=== PATIENT | female | born 1980 | race Caucasian/White ===

== ENCOUNTER 2020-12-27 13:51 | Emergency (ER) | payer OTHER, SELFPAY ==
[2020-12-27] VITALS (7 sets, daily range): BP systolic 161–204; BP diastolic 90–110; PULSE 76–87; RESP 17; TEMP 36.8; O2SAT 99; BMI 38.0
--- NOTE | ~2020-12-27 | CT_ITS ---
EXAMINATION: CT HEAD WITHOUT CONTRAST CLINICAL INFORMATION: Headache. Hypertension. COMPARISON: None TECHNIQUE: Contiguous axial imaging was performed from the skull base to vertex without intravenous administration of contrast. This CT examination was performed using dose optimization techniques as appropriate, variously including the following: *Automated exposure control *Adjustment of mA and/or kV according to patient size (this includes techniques or standardized protocols for targeted exams where dose is matched to indication/reason for exam; i.e. extremities or head) *Use of iterative reconstruction technique DLP: 698.65 mGy-cm FINDINGS: There is no evidence of acute intracranial hemorrhage or territorial infarction. No abnormal mass effect or midline shift is seen. Muse to white matter differentiation is well preserved. No extra-axial fluid collections are identified. The ventricles are normal in size. There is no abnormal attenuation within the brain parenchyma. The osseous structures and soft tissues are normal. The mastoid air cells and visualized portions of the paranasal sinuses are well aerated. CT/CT head/brain wo con IMPRESSION: No acute intracranial pathology.
--- NOTE | 2020-12-27 15:00 | ED_ITS ---
HPI - General Adult General Chief complaint: General Medical Stated complaint: hbp Time Seen by Provider: 12/27/20 15:00 Source: patient Mode of arrival: ambulatory Limitations: no limitations History of Present Illness HPI narrative: This is a 40-year-old female reports history of asthma, hypothyroidism, obesity and prediabetes with surgical history of cholecystectomy presents today with complaint of high blood pressure with associated headache. States she went to her primary care doctor December 17 (4 days ago) there she was found to have significantly elevated blood pressure without a history she did have any symptoms thus she was subsequently started on 2.5 mg of amlodipine and states since she has been checking her blood pressure she checked last night was elevated this morning she woke up with elevated blood pressure and had a headache since. She otherwise denies any recent illness, chest pain or shortness of breath. Headache is described as diffuse, gradual onset. There is no associated vision changes. No dizziness. Onset (ago): day(s) Location: head Radiation: non-radiation Severity: moderate Quality: aching Pain Consistency: intermittent Relieving factors: none Exacerbating factors: none Associated symptoms: denies other symptoms Treatments prior to arrival: none Related Data Previous Rx's Medication Instructions Recorded amlodipine 10 mg tablet 10 mg PO DAILY 14 Days #14 tab 12/27/20 Allergies Allergy/AdvReac Type Severity Reaction Status Date / Time Penicillins [PENICILLINS] Allergy Severe Anaphylaxis Verified 12/27/20 14:09 Sulfa (Sulfonamide Allergy Intermediate Rash Verified 12/27/20 14:09 Antibiotics) Review of Systems Review of Systems: Constitutional: No Weight loss, No Fever, No Chills, No Night Sweats, No Fatigue, No Malaise ENT/Mouth: No Hearing loss, No Ear Pain, No Nasal Congestion, No Sinus Pain, No Hoarseness, No sore throat, No Rhinorrhea, No Swallowing Difficulty Eyes: No Eye Pain, No Swelling, No Redness, No Foreign Body, No Discharge, No Vision Changes Cardiovascular: No Chest Pain, No SOB, No Dyspnea on Exertion, No Orthopnea, No Edema, No Palpitations Respiratory: No Cough, No Sputum, No Wheezing, No Smoke Exposure, No Dyspnea Gastrointestinal: No Nausea, No Vomiting, No Diarrhea, No Constipation, No abdominal Pain, No Hematochezia, No Melena Genitourinary: no irregular bleeding, No Dysuria, No Urinary Frequency, No Hematuria, No Urinary Incontinence, No Urgency, No Flank Pain, No Urinary Flow Changes, No Hesitancy Musculoskeletal: No joint pain, No Myalgias, No Joint Swelling Skin: No Skin Lesions, No rash Neuro: No Weakness, No Numbness, No Paresthesias, No Loss of Consciousness, No Dizziness Psych: No Social Issues Heme/Lymph: No Bruising, No Bleeding,No Lymphadenopathy Endocrine: No Polyuria, No Polydipsia, No Temperature Intolerance Yes all other systems are reviewed and are negative [facility] Past Medical History Medical History (Updated 12/27/20 @ 18:08 by Cliff Ford NP) Asthma Hypothyroid Obesity Pre-hypertension Surgical History S/P cholecystectomy Social History Social History Patient Tobacco Use Status: Former Tobacco user Substance Use Type: Marijuana Substance Use Frequency: Occasionally Advance Directives: No Advance Directives Information Provided: Yes Patient : No Physical Exam Vital Signs: Vital Signs: Last Vital Signs Temp 98.3 F 12/27/20 14:10 Pulse 78 12/27/20 17:30 Resp 17 12/27/20 14:10 BP 165/90 H 12/27/20 17:30 Pulse Ox 99 12/27/20 14:10 Body Mass Index 38.0 Course Reevaluation(s) Reevaluation #1: 1500 Blood pressure significantly elevated upon arrival 204/110 currently on 2.5 mg amlodipine this is likely insufficient therapy for her recommend her to be on at least 10 mg in addition to this gradually be added on to diuretic as well. She currently has a mild headache I will check labs, treat the blood pressure given that she is symptomatic and obtain head CT of the head rule out acute intracranial pathology though suspicions are low. Reevaluation #2: Labs overall reassuring, resting comfortably. Marginal improvement in blood pressure after given p.o. 0.1 clonidine and 10 of amlodipine. She reports she feels better no headache now. CT of the head is unremarkable. I will give her 10 mg of IV labetalol and re-evaluate. Reevaluation #3: Has been sleeping easy to arouse blood pressure sustaining at 160/90 concur to arrival 210/ 100 which I believe is her baseline for some time now as this was her blood pressure in the primary care's office. She was given 2.5 mg of amlodipine I will change this to 10 mg once daily and I will advise her to call tomorrow primary care office for recheck and medication adjustment as needed. She feels comfortable plan. Stable for discharge. Medical Decision Making Lab Data Result diagrams: 12/27/20 15:30 12/27/20 15:30 Labs: Lab Results 12/27/20 12/27/20 12/27/20 Range/Units 15:30 15:30 15:47 WBC 9.2 (4.8-10.8) X10*3/uL RBC 5.26 (4.20-5.50) X10*6/uL Hgb 13.7 (12.0-16.0) g/dl Hct 40.9 (37-47) % MCV 77.8 L (80-98) fL MCH 26.0 L (27.0-33.0) pg MCHC 33.5 (31.0-35.0) g/dl RDW 13.9 (11.0-16.0) % Plt Count 265 (160-400) X10*3/uL MPV 9.1 L (9.4-12.3) fL Immature Gran % (Auto) 0.4 (0.0-0.4) % Neut % (Auto) 62.5 (45-73) % Lymph % (Auto) 26.5 (20-40) % Oliver % (Auto) 7.0 (2-11) % Eos % (Auto) 2.8 (0-4) % Baso % (Auto) 0.8 (0-2) % Lymph # (Auto) 2.4 (1.2-4.9) X10*3/uL [place] # (Auto) 0.7 (0.1-1.2) X10*3/uL Eos # (Auto) 0.3 (0.0-0.4) X10*3/uL Baso # (Auto) 0.1 (0.0-0.2) X10*3/uL Abs Immat Gran (auto) 0.04 H (0.00-0.03) X10*3/uL Absolute Neuts (auto) 5.8 (2.0-8.3) X10*3/uL Absolute Nucleated RBC 0.000 (0.0-0.012) X10*3/uL Nucleated RBC % (auto) 0.0 (0.0-0.2) /100WBC Sodium 141 (135-145) mmol/L Potassium 3.8 (3.3-5.1) mmol/L Chloride 106 (96-108) mmol/L Carbon Dioxide 26 (22-29) mmol/L Anion Gap 13 (12-20) BUN 8 L (9-16) mg/dL Creatinine 0.87 (0.5-1.4) mg/dL Estim Creat Clear Calc 99.1 Estimated GFR > 60 Random Glucose 102 (60-115) mg/dL Calcium 9.6 (8.4-10.2) mg/dL Total Bilirubin 0.6 (0.0-1.0) mg/dL AST 26 (5-31) U/L ALT 28 (0-31) U/L Alkaline Phosphatase 116 (39-117) U/L Total Protein 7.1 (6.5-8.0) g/dL Albumin 4.2 (3.5-5.0) g/dL Urine Color Urine Appearance Urine pH (5.0-8.0) Ur Specific Norman (1.005-1.025) Urine Protein (NEG-TRACE) MG/DL Urine Glucose (UA) (NEG) MG/DL Urine Ketones (NEG) MG/DL Urine Blood (NEG) Urine Nitrite (NEG) Ur Leukocyte Esterase (NEG) Urine RBC (0) /HPF Urine WBC (0-4) /HPF Ur Squamous Epith Cells /LPF Urine Bacteria /LPF Urine Test NEGATIVE (NEGATIVE) 12/27/20 Range/Units 15:47 WBC (4.8-10.8) X10*3/uL RBC (4.20-5.50) X10*6/uL Hgb (12.0-16.0) g/dl Hct (37-47) % MCV (80-98) fL MCH (27.0-33.0) pg MCHC (31.0-35.0) g/dl RDW (11.0-16.0) % Plt Count (160-400) X10*3/uL MPV (9.4-12.3) fL Immature Gran % (Auto) (0.0-0.4) % Neut % (Auto) (45-73) % Lymph % (Auto) (20-40) % Oliver % (Auto) (2-11) % Eos % (Auto) (0-4) % Baso % (Auto) (0-2) % Lymph # (Auto) (1.2-4.9) X10*3/uL Oliver # (Auto) (0.1-1.2) X10*3/uL Eos # (Auto) (0.0-0.4) X10*3/uL Baso # (Auto) (0.0-0.2) X10*3/uL Abs Immat Gran (auto) (0.00-0.03) X10*3/uL Absolute Neuts (auto) (2.0-8.3) X10*3/uL Absolute Nucleated RBC (0.0-0.012) X10*3/uL Nucleated RBC % (auto) (0.0-0.2) /100WBC Sodium (135-145) mmol/L Potassium (3.3-5.1) mmol/L Chloride (96-108) mmol/L Carbon Dioxide (22-29) mmol/L Anion Gap (12-20) BUN (9-16) mg/dL Creatinine (0.5-1.4) mg/dL Estim Creat Clear Calc Estimated GFR Random Glucose (60-115) mg/dL Calcium (8.4-10.2) mg/dL Total Bilirubin (0.0-1.0) mg/dL AST (5-31) U/L ALT (0-31) U/L Alkaline Phosphatase (39-117) U/L Total Protein (6.5-8.0) g/dL Albumin (3.5-5.0) g/dL Urine Color YELLOW Urine Appearance CLEAR Urine pH 7.0 (5.0-8.0) Ur Specific Norman 1.015 (1.005-1.025) Urine Protein TRACE (NEG-TRACE) MG/DL Urine Glucose (UA) NEG (NEG) MG/DL Urine Ketones NEG (NEG) MG/DL Urine Blood NEG (NEG) Urine Nitrite NEG (NEG) Ur Leukocyte Esterase NEG (NEG) Urine RBC 0-2 (0) /HPF Urine WBC 0-2 (0-4) /HPF Ur Squamous Epith Cells 1+ /LPF Urine Bacteria TRACE /LPF Urine Test (NEGATIVE) Imaging Data CT scan - head: Radiologist's impression: [address] [address] [address] Scan Report Signed Patient: Cornelia Palencia MR#: [id number] : 1980 Acct:[id number] Age/Sex: 40 / F ADM Date: 12/27/20 Loc: HO.ED Attending Dr: Ordering Physician: Cliff Ford NP Date of Service: 12/27/20 Procedure(s): CT head/brain wo con Accession Number(s): [id number] cc: Cliff Ford ETHICS OFFICER~ EXAMINATION: CT HEAD WITHOUT CONTRAST CLINICAL INFORMATION: Headache. Hypertension.? COMPARISON: None TECHNIQUE: Contiguous axial imaging was performed from the skull base to vertex without intravenous administration of contrast. This CT examination was performed using dose optimization techniques as appropriate, variously including the following: *Automated exposure control *Adjustment of mA and/or kV according to patient size (this includes techniques or standardized protocols for targeted exams where dose is matched to indication/reason for exam; i.e. extremities or head) *Use of iterative reconstruction technique DLP: 698.65 mGy-cm FINDINGS: There is no evidence of acute intracranial hemorrhage or territorial infarction. No abnormal mass effect or midline shift is seen. Muse to white matter differentiation is well preserved. No extra-axial fluid collections are identified. The ventricles are normal in size. There is no abnormal attenuation within the brain parenchyma. The osseous structures and soft tissues are normal. The mastoid air cells and visualized portions of the paranasal sinuses are well aerated. ? CT/CT head/brain wo con IMPRESSION: No acute intracranial pathology. Dictated By: SIMIN WEN MD Signed By: <Electronically signed by SIMIN WEN MD in OV> 12/27/20 1545 DD/ 1504 TD/TT:? Calender Runner: PK ECG Data Interpretation: Test Reason : HTN Blood Pressure : / mmHG Vent. Rate : 083 BPM ? ? Atrial Rate : 083 BPM ?? P-R Int : 138 ms? QRS Dur : 084 ms ? ? QT Int : 406 ms ? ? ? P-R-T Axes : 044 040 -09 degrees ?? QTc Int : 477 ms ? Normal sinus rhythm Possible Left atrial enlargement Left ventricular hypertrophy Nonspecific T wave abnormality Prolonged QT Abnormal ECG No previous ECGs available ? Critical Care Time Critical Care Time Critical Care Time: Yes Total Critical Care Time: 65 Attestation: Management of hypertensive urgency requiring multiple agents, multiple re-evaluations at bedside for the duration of her ED stay. Discharge Plan Discharge Clinical Impression: Hypertensive urgency, Headache Patient Disposition: Home, Self-Care Instructions: Acute Headache (ED), Hypertensive Crisis (ED) Additional Instructions: Please take your medication as prescribed Follow-up with primary care doctor tomorrow for blood pressure recheck and have your medication adjusted as needed Return if any concerns or worsening symptoms Thank you Prescriptions: New amlodipine 10 mg tablet 10 mg PO DAILY 14 Days Qty: 14 RF: 0 Referrals: Physician,Unknown [Primary Care Provider] - 1 day (Primary care)
--- NOTE | 2020-12-27 15:04 | ECG_ITS ---
Test Reason : HTN Blood Pressure : / mmHG Vent. Rate : 083 BPM Atrial Rate : 083 BPM P-R Int : 138 ms QRS Dur : 084 ms QT Int : 406 ms P-R-T Axes : 044 040 -09 degrees QTc Int : 477 ms Normal sinus rhythm Possible Left atrial enlargement Left ventricular hypertrophy Nonspecific T wave abnormality Prolonged QT Abnormal ECG No previous ECGs available Referred By: Cliff Ford Electronically Signed By:KAILEY RUIZ
[2020-12-27] MEDS: cloNIDine HCL 0.1 MG TABLET PO (15:28)
[2020-12-27] MEDS: amLODIPine Besylate 10 MG TABLET PO (15:28)
[2020-12-27 15:41] LABS: MANUAL DIFF FLAG NO
[2020-12-27 15:42] LABS: Basophils Absolute Auto 0.1 X10*3/uL (0.0-0.2); Basophils Percent Auto 0.8 % (0-2); Eosinophils Absolute Auto 0.3 X10*3/uL (0.0-0.4); Eosinophils Percent Auto 2.8 % (0-4); Hematocrit 40.9 % (37-47); Hemoglobin 13.7 g/dl (12.0-16.0); Imm Gran Abs Auto 0.04 X10*3/uL (0.00-0.03); Imm Gran Pct Auto 0.4 % (0.0-0.4); Lymphocytes Absolute Auto 2.4 X10*3/uL (1.2-4.9); Lymphocytes Percent Auto 26.5 % (20-40); Mean Corpuscular HGB Conc 33.5 g/dl (31.0-35.0); Mean Corpuscular Volume 77.8 fL (80-98); Mean Platelet Volume 9.1 fL (9.4-12.3); Monocytes Absolute Auto 0.7 X10*3/uL (0.1-1.2); Neutrophils Absolute Auto 5.8 X10*3/uL (2.0-8.3); Neutrophils Percent Auto 62.5 % (45-73); Platelet Count 265 X10*3/uL (160-400); Red Blood Count 5.26 X10*6/uL (4.20-5.50); Red Cell Distribution Width 13.9 % (11.0-16.0); White Blood Count 9.2 X10*3/uL (4.8-10.8)
[2020-12-27 16:03] LABS: Alanine Aminotransferase 28 U/L (0-31); Albumin Level 4.2 g/dL (3.5-5.0); Alkaline Phosphatase 116 U/L (39-117); Anion Gap 13 (12-20); Aspartate Amino Transferase 26 U/L (5-31); Bilirubin Total 0.6 mg/dL (0.0-1.0); Blood Urea Nitrogen 8 mg/dL (9-16); Calcium 9.6 mg/dL (8.4-10.2); Carbon Dioxide 26 mmol/L (22-29); Chloride 106 mmol/L (96-108); Creatinine Clr Calc Pharmacy 99.1; Estimated Glomerular Filt Rate > 60; Glucose Random 102 mg/dL (60-115); Potassium 3.8 mmol/L (3.3-5.1); Sodium 141 mmol/L (135-145); Total Protein 7.1 g/dL (6.5-8.0)
[2020-12-27 16:04] LABS: Appearance Urine CLEAR; Color Urine YELLOW; Glucose Urine UA NEG (NEG); Leukocyte Esterase Urine NEG (NEG); Nitrite Urine NEG (NEG); Specific Gravity - Urine 1.015 (1.005-1.025); Urine Blood NEG (NEG); Urine Ketones NEG (NEG); Urine Pregnancy NEGATIVE (NEGATIVE); Urine Protein TRACE MG/DL (NEG-TRACE)
[2020-12-27 16:05] LABS: UPreg QC Valid YES
[2020-12-27 16:14] LABS: Bacteria Urine TRACE /LPF; RBC Urine 0-2 /HPF (0); Squamous Epithelial Cell Urine 1+ /LPF; WBC Urine 0-2 /HPF (0-4)
[2020-12-27] MEDS: Labetalol HCL 100 MG/20 ML VIAL 10 MG IVPUSH (16:23)
--- NOTE | 2020-12-27 16:24 | PC.NURSE ---
Addendum entered by Hedy Poole RN 12/27/20 16:45: 1645: BP trending down slightly. Pt reports an improvement in her headache. Original Note: 10mg labatalol given IV. BP auto set to re-assess.
--- NOTE | 2020-12-27 17:46 | PC.NURSE ---
Pt resting in bed with eyes closed. BP has improved.
== END 2020-12-27 18:43 | disposition home or self-care (01) ==
PROVIDERS: Nurse Practitioner Primary Care; Emergency Provider Emergency Medicine
DX: I16.0 Hypertensive urgency (principal); R51.9 Headache, unspecified; Z79.899 Other long term (current) drug therapy; F12.90 Cannabis use, unspecified, uncomplicated
CPT/HCPCS: 36415; 70450; 80053; 81001; 81025; 85025; 93005; 96374; 99285; 99291

== ENCOUNTER 2021-06-18 14:40 | Observation (INO) | payer OTHER, SELFPAY ==
[2021-06-18] VITALS (11 sets, daily range): BP systolic 156–196; BP diastolic 90–105; PULSE 66–80; RESP 16–18; TEMP 36.8; O2SAT 99–100; BMI 37.8
--- NOTE | ~2021-06-18 | CT_ITS ---
EXAMINATION: CT HEAD WITHOUT CONTRAST CLINICAL INFORMATION: Hypertension, headache. COMPARISON: 12/27/2020. TECHNIQUE: Contiguous axial imaging was performed from the skull base to vertex without intravenous administration of contrast. This CT examination was performed using dose optimization techniques as appropriate, variously including the following: *Automated exposure control *Adjustment of mA and/or kV according to patient size (this includes techniques or standardized protocols for targeted exams where dose is matched to indication/reason for exam; i.e. extremities or head) *Use of iterative reconstruction technique DLP: 679 mGy-cm FINDINGS: There is no evidence of acute intracranial hemorrhage or territorial infarction. No abnormal mass effect or midline shift is seen. Muse to white matter differentiation is well preserved. No extra-axial fluid collections are identified. The ventricles are normal in size. There is no abnormal attenuation within the brain parenchyma. The osseous structures and soft tissues are normal. The mastoid air cells and visualized portions of the paranasal sinuses are well aerated. CT/CT head/brain wo con IMPRESSION: No acute intracranial pathology.
--- NOTE | 2021-06-18 15:31 | ECG_ITS ---
Test Reason : HYPERTENSION Blood Pressure : / mmHG Vent. Rate : 068 BPM Atrial Rate : 068 BPM P-R Int : 152 ms QRS Dur : 078 ms QT Int : 412 ms P-R-T Axes : 026 033 039 degrees QTc Int : 438 ms Normal sinus rhythm with sinus arrhythmia Normal ECG When compared with ECG of 27-DEC-2020 15:20, T wave inversion no longer evident in Inferior leads Referred By: Generic ED Physician Electronically Signed By:CHIP BARNES
[2021-06-18 17:32] LABS: MANUAL DIFF FLAG NO
[2021-06-18 17:44] LABS: Basophils Absolute Auto 0.1 X10*3/uL (0.0-0.2); Basophils Percent Auto 0.7 % (0-2); Eosinophils Absolute Auto 0.2 X10*3/uL (0.0-0.4); Eosinophils Percent Auto 2.1 % (0-4); Hematocrit 41.1 % (37.0-47.0); Hemoglobin 13.1 g/dl (12.0-16.0); Imm Gran Abs Auto 0.01 X10*3/uL (0.00-0.03); Imm Gran Pct Auto 0.1 % (0.0-0.4); Lymphocytes Absolute Auto 2.8 X10*3/uL (1.2-4.9); Lymphocytes Percent Auto 36.7 % (20-40); Mean Corpuscular HGB Conc 31.9 g/dl (31.0-35.0); Mean Corpuscular Hemoglobin 25.9 pg (27.0-33.0); Mean Corpuscular Volume 81.2 fL (80.0-98.0); Mean Platelet Volume 9.3 fL (9.4-12.3); Monocytes Absolute Auto 0.6 X10*3/uL (0.1-1.2); Monocytes Percent Auto 7.4 % (2-11); Neutrophils Absolute Auto 4.1 x10*3/uL (2.0-8.3); Platelet Count 300 X10*3/uL (160-400); Red Blood Count 5.06 X10*6/uL (4.20-5.50); Red Cell Distribution Width 13.7 % (11.0-16.0); White Blood Count 7.7 X10*3/uL (4.8-10.8)
[2021-06-18 17:52] LABS: Anion Gap 12 (12-20); Blood Urea Nitrogen 12 mg/dL (9-16); Calcium 9.7 mg/dL (8.4-10.2); Carbon Dioxide 26 mmol/L (22-29); Chloride 107 mmol/L (96-108); Creatinine Clr Calc Pharmacy 114.4; Estimated Glomerular Filt Rate > 60; Glucose Random 80 mg/dL (60-115); Potassium 4.7 mmol/L (3.3-5.1); Sodium 140 mmol/L (135-145)
[2021-06-18 17:57] LABS: Troponin-I High Sensitivity 4.2 ng/L (<3.5-17.0)
--- NOTE | 2021-06-18 19:28 | ED.GENADULT ---
HPI - General Adult General Chief complaint: General Medical Stated complaint: HBP Time Seen by Provider: 06/18/21 19:25 Source: patient Mode of arrival: ambulatory Limitations: no limitations History of Present Illness MD complaint: elevated BP to 200s Onset (ago): day(s) (7) Location: head Severity: mild and moderate Quality: aching Pain Consistency: intermittent Relieving factors: none Exacerbating factors: other (significant life stress this week) Associated symptoms: headaches (mild parietal headache) Treatments prior to arrival: other (compliant with her losartan 100mg daily) Related Data Previous Rx's Medication Instructions Recorded amlodipine 10 mg tablet 10 mg PO DAILY 14 Days #14 tab 12/27/20 metoprolol succinate 25 mg 25 mg PO DAILY #30 tab 06/18/21 tablet,extended release 24 hr Allergies Allergy/AdvReac Type Severity Reaction Status Date / Time Penicillins [PENICILLINS] Allergy Severe Anaphylaxis Verified 12/27/20 14:09 Sulfa (Sulfonamide Allergy Intermediate Rash Verified 12/27/20 14:09 Antibiotics) Review of Systems Review of Systems: Constitutional : No Fever, No Chills, No Fatigue ENT/Mouth : No sore throat, No Rhinorrhea Eyes: No Eye Pain, No Swelling, No Redness Cardiovascular : No Chest Pain, No SOB, No Dyspnea on Exertion Respiratory : No Cough, No Sputum Gastrointestinal : No Nausea, No Vomiting, No Diarrhea, No abdominal Pain Genitourinary : No Dysuria, No Urinary Frequency, No Hematuria, Musculoskeletal : No joint pain, No Myalgias, No Joint Swelling Skin : No Skin Lesions, No rash Neuro : No Weakness, No Numbness, No Dizziness, positive Headache Psych : No Anxiety/Panic, No Depression Heme/Lymph: No Bruising, No Bleeding,No Lymphadenopathy Endocrine : No Polyuria, No Polydipsia All other systems reviewed and are negative PMFSH Past Medical History Attestation statement: The following information was validated with the patient. Medical History (Updated 06/18/21 @ 22:47 by Adalgisa Dhaliwal DO) Asthma HTN (hypertension) Hypothyroid Obesity Surgical History S/P cholecystectomy Social History Social History Patient Tobacco Use Status: Former Tobacco user Substance Use Type: Marijuana Advance Directives: No Physical Exam ED Vital Signs: Vital Signs - 24 hr 06/18/21 15:02 06/18/21 20:29 06/18/21 20:34 Temperature 98.2 F Pulse Rate 75 67 71 Respiratory Rate 18 18 16 Blood Pressure 193/96 H 160/93 H 156/90 H Pulse Oximetry 100 99 99 06/18/21 20:39 06/18/21 20:44 06/18/21 20:53 Temperature Pulse Rate 72 80 71 Respiratory Rate 18 18 18 Blood Pressure 166/91 H 162/96 H 161/98 H Pulse Oximetry 100 100 100 06/18/21 21:05 06/18/21 21:14 Temperature Pulse Rate 71 71 Respiratory Rate 18 18 Blood Pressure 156/105 H 196/90 H Pulse Oximetry 100 99 BMI result Body Mass Index 37.8 Appearance: Alert. Oriented X3. No acute distress. Eyes: Pupils equal, round and reactive to light. ENT: Pharynx normal. Neck: Normal inspection. Neck supple. CVS: Normal heart rate and rhythm. Pulses normal. Respiratory: No respiratory distress. Breath sounds normal. Abdomen: Soft and non-tender. Skin: Skin warm and dry. Normal skin color. Normal skin turgor. Extremities: No lower extremity edema. No calf ttp Neuro: Oriented X 3. No motor deficit. No sensory deficit. Course Course Course Narrative: good response to labetalol BP down feels much better and wants to go home will start on metoprolol has apple watch states her HR is usually above 80s IV hydralazine 190/[address] prior to admission signed out to Dr. Matthew Medical Decision Making [facility] Narrative Medical decision making narrative: 40 yo female hx of HTN on losartan 100mg daily she is compliant had a bad week with family including the of a family member she has no neuro deficits and the headache is mild at this time will obtain basic labs, EKG, IV labetalol to lower BP and likely start on low dose metoprolol. No neurologic deficits. Dispo per results and findings. Lab Data Result diagrams: 06/18/21 17:16 06/18/21 17:16 Labs: Lab Results 06/18/21 06/18/21 06/18/21 Range/Units 17:16 17:16 17:16 WBC 7.7 (4.8-10.8) X10*3/uL RBC 5.06 (4.20-5.50) X10*6/uL Hgb 13.1 (12.0-16.0) g/dl Hct 41.1 (37.0-47.0) % MCV 81.2 (80.0-98.0) fL MCH 25.9 L (27.0-33.0) pg MCHC 31.9 (31.0-35.0) g/dl RDW 13.7 (11.0-16.0) % Plt Count 300 (160-400) X10*3/uL MPV 9.3 L (9.4-12.3) fL Immature Gran % (Auto) 0.1 (0.0-0.4) % Neut % (Auto) 53.0 (45-73) % Lymph % (Auto) 36.7 (20-40) % [place] % (Auto) 7.4 (2-11) % Eos % (Auto) 2.1 (0-4) % Baso % (Auto) 0.7 (0-2) % Lymph # (Auto) 2.8 (1.2-4.9) X10*3/uL [place] # (Auto) 0.6 (0.1-1.2) X10*3/uL Eos # (Auto) 0.2 (0.0-0.4) X10*3/uL Baso # (Auto) 0.1 (0.0-0.2) X10*3/uL Abs Immat Gran (auto) 0.01 (0.00-0.03) X10*3/uL Absolute Neuts (auto) 4.1 (2.0-8.3) x10*3/uL Absolute Nucleated RBC 0.000 (0.0-0.012) X10*3/uL Nucleated RBC % (auto) 0.0 (0.0-0.2) /100WBC Sodium 140 (135-145) mmol/L Potassium 4.7 D (3.3-5.1) mmol/L Chloride 107 (96-108) mmol/L Carbon Dioxide 26 (22-29) mmol/L Anion Gap 12 (12-20) BUN 12 (9-16) mg/dL Creatinine 0.75 (0.5-1.4) mg/dL Estim Creat Clear Calc 114.4 Estimated GFR > 60 Random Glucose 80 (60-115) mg/dL Calcium 9.7 (8.4-10.2) mg/dL Troponin I High Sens 4.2 (<3.5-17.0) ng/L ECG Data Attestation: I personally reviewed and interpreted this ECG as follows: Interpretation: Rate: 68 Rhythm: NSR [place]: normal Normal P waves. Normal JOSE. Normal QRS complex. ST T wave : no ALVARO, nonspecific qTC: normal prior studies: no acute ischemia The study has been interpreted contemporaneously by me. . Discharge Plan Discharge Clinical Impression: Hypertension, uncontrolled Patient Disposition: Admitted As Inpatient Additional Instructions: return to ED for any worsening symptoms or concerns
[2021-06-18] MEDS: Labetalol HCL 100 MG/20 ML VIAL 10 MG IVPUSH (20:23)
[2021-06-18] MEDS: Metoprolol Tartrate 25 MG TABLET PO (21:28)
[2021-06-18] MEDS: hydrALAZINE HCl 20 MG/ML VIAL 10 MG IVPUSH (22:48)
[2021-06-18 23:03] LABS: COVID-19 Test Negative (Negative)
--- NOTE | 2021-06-18 23:57 | PM.IMHP ---
History of Present Illness Date of Service: 06/18/21 Chief Complaint: elevated blood pressure 40-year-old female with a past medical history of hypertension, obesity presented to the hospital with a chief complaint of elevated blood pressure. Patient reported that she noted to have high blood pressure elevated to 190 systolic; call the PCP to see the PCP early but she could not get appointment; but patient was instructed to go to the ER if she develops any headaches blurry visions; today she had headache; when checked her blood pressure systolic was in 200s; subsequently came to the ER for further evaluation. Denies any headaches blurry visions, numbness tingling or focal weakness at the time of my interview. Denies any chest pain palpitations lightheadedness or dizziness. Patient reports that she has been complaint with her home medications. Mention she was on amlodipine in the past which was giving her cough hands of the was discontinued and started on losartan 50 mg and followed weight was changed to 100 mg. Mentions she has been complaint with her low-salt diet. Denies any GI symptoms. Review of all other systems is negative except mentioned above ER course: Per ER team patient blood pressure was noted to be in 190s systolic; patient was given IV labetalol initially blood pressure improved to 1 60s but again blood pressure wrist up to 190 systolic; given IV hydralazine. Patient was also given p.o. metoprolol. Admitted to the hospital for further management. [facility] Medical History (Updated 06/18/21 @ 22:47 by Adalgisa Dhaliwal DO) Asthma HTN (hypertension) Hypothyroid Obesity Pertinent family history: reviewed Surgical History S/P cholecystectomy Social History Patient Tobacco Use Status: Former Tobacco user Substance Use Type: Marijuana Advance Directives: No Meds Allergies Allergy/AdvReac Type Severity Reaction Status Date / Time Penicillins [PENICILLINS] Allergy Severe Anaphylaxis Verified 12/27/20 14:09 Sulfa (Sulfonamide Allergy Intermediate Rash Verified 12/27/20 14:09 Antibiotics) Active Medications: Current Medications Pharmacy Consult (Consult Rx Perform Med Rec) 1 each MISCELLANE ONCE PRN PRN Reason: Consult order Physical Exam Vital Signs and Narrative: Vital Signs: Last Vital Signs Temp 98.2 F 06/18/21 15:02 Pulse 75 06/18/21 23:47 Resp 17 06/18/21 23:47 BP 168/98 H 06/18/21 23:55 Pulse Ox 99 06/18/21 23:47 BMI result Body Mass Index 37.8 Gen: Appears be in no acute distress HEENT: NCAT, Moist mucosa. Pulmonary: Vesicular breath sounds, fair air entry CVS: Normal S1-S2 Abdomen: BS+, Soft, Nontender Extremities: Warm well perfused Neuro: Alert and awake. grossly nonfocal Results Labs CBC and Chem 7: 06/18/21 17:16 06/18/21 17:16 Labs: Laboratory Results - last 24 hr 06/18/21 06/18/21 06/18/21 17:16 17:16 22:45 MCV 81.2 MCH 25.9 L MCHC 31.9 RDW 13.7 Plt Count 300 MPV 9.3 L Immature Gran % (Auto) 0.1 Neut % (Auto) 53.0 Lymph % (Auto) 36.7 [place] % (Auto) 7.4 Eos % (Auto) 2.1 Baso % (Auto) 0.7 Lymph # (Auto) 2.8 [place] # (Auto) 0.6 Eos # (Auto) 0.2 Baso # (Auto) 0.1 Abs Immat Gran (auto) 0.01 Absolute Neuts (auto) 4.1 Absolute Nucleated RBC 0.000 Nucleated RBC % (auto) 0.0 Anion Gap 12 Estim Creat Clear Calc 114.4 Estimated GFR > 60 Random Glucose 80 Calcium 9.7 COVID-19 (NIA) Negative COVID-19 Clin Com See Note Imaging Radiologist's Impressions: Impressions Head CT 06/18/21 23:17 IMPRESSION: No acute intracranial pathology. Assessment and Plan (1) Hypertension, uncontrolled: Status: Acute Plan 40-year-old female with a past medical history of hypertension, obesity presented to the hospital with a chief complaint of elevated blood pressure. Noted to be in hypertensive urgency. Admitted for further management. Hypertensive urgency: Patient initially had a headache /blurry vision. CT head showed no acute findings. Symptoms resolved. Currently systolic blood pressure in 160s. Will keep the patient on losartan 100 mg. Start with metoprolol 25 mg b.i.d.. Labetalol p.r.n. Obesity: Patient educated on lifestyle modifications. recommended to follow-up with PCP /weight management clinic. DVT prophylaxis: Subcu heparin Code status: Full code Quality Stroke Does the patient have a stroke diagnosis?: No VTE Prior VTE?: No VTE Risk Level:: Medical - moderate - high VTE Device Contraindication: Treatment Not Indicated VTE Drug Contraindication: N/A - Med Ordered
[2021-06-19 03:46] VITALS: BP 147/79; PULSE 99; RESP 16; O2SAT 97
--- NOTE | 2021-06-19 05:32 | PC.NURSE ---
I assumed nursing care of Cornelia upon her arrival to bed 8 from the waiting room. She presents after being sent to the ED for evaluation of high BP and headache. On arrival she ambulated from waiting room to bed 8 independently and with steady gait. She denies chest pain, denies diff. breathing. Respirations are non-labored, she speaks in full sentences, no cyanosis. Room air sat's remain 95% or better. SHe is alert, oriented x 3, makes eye contact with staff and has been calm and cooperative. her has been at the bedside with her for some of her ER visit. Initially the pt was administered labetalol as her BP was 190's/110. After Labetalol she improved to 160/90's but returned to 190's/110's a short times later. Additional IV meds were given as well as PO meds in order to improve her BP (see EMAR for meds, doses, times) and the decision was made to admit the pt. She verbalized an understanding of this. There has been no nausea, no vomiting. She denies changes in her bowel or bladder pattern. She has been taking PO meds and food here in the ED without difficulty. We will continue to monitor Cornelia and prepare her for inaptient admission.
[2021-06-19] MEDS: Acetaminophen 325 MG TABLET 650 MG PO (06:03)
[2021-06-19 06:38] LABS: MANUAL DIFF FLAG NO
[2021-06-19 06:49] LABS: Basophils Absolute Auto 0.1 X10*3/uL (0.0-0.2); Basophils Percent Auto 0.7 % (0-2); Eosinophils Absolute Auto 0.2 X10*3/uL (0.0-0.4); Eosinophils Percent Auto 2.1 % (0-4); Hematocrit 42.3 % (37.0-47.0); Hemoglobin 13.5 g/dl (12.0-16.0); Imm Gran Abs Auto 0.02 X10*3/uL (0.00-0.03); Imm Gran Pct Auto 0.2 % (0.0-0.4); Lymphocytes Absolute Auto 2.6 X10*3/uL (1.2-4.9); Lymphocytes Percent Auto 30.4 % (20-40); Mean Corpuscular HGB Conc 31.9 g/dl (31.0-35.0); Mean Corpuscular Hemoglobin 25.9 pg (27.0-33.0); Mean Platelet Volume 9.2 fL (9.4-12.3); Monocytes Absolute Auto 0.6 X10*3/uL (0.1-1.2); Monocytes Percent Auto 6.9 % (2-11); Neutrophils Percent Auto 59.7 % (45-73); Platelet Count 293 X10*3/uL (160-400); Red Blood Count 5.22 X10*6/uL (4.20-5.50); White Blood Count 8.4 X10*3/uL (4.8-10.8)
[2021-06-19 06:57] LABS: Anion Gap 13 (12-20); Blood Urea Nitrogen 9 mg/dL (9-16); Calcium 9.3 mg/dL (8.4-10.2); Carbon Dioxide 24 mmol/L (22-29); Chloride 107 mmol/L (96-108); Creatinine Clr Calc Pharmacy 110.1; Estimated Glomerular Filt Rate > 60; Glucose Random 92 mg/dL (60-115); Potassium 4.1 mmol/L (3.3-5.1); Sodium 140 mmol/L (135-145)
[2021-06-19 07:16] VITALS: BP 167/97; PULSE 75; RESP 18; O2SAT 99
--- NOTE | 2021-06-19 07:48 | PHA.MEDREC ---
Pharmacy Consult ? Medication Reconciliation Pharmacy has completed the medication reconciliation. There are no remarkable issues for provider's attention. Saritha Robbins, RamónD
[2021-06-19] MEDS: Metoprolol Tartrate 25 MG TABLET PO (08:14)
[2021-06-19] MEDS: NIFEdipine ER 30 MG TAB.ER.24 PO (08:14)
[2021-06-19] MEDS: Losartan Potassium 50 MG TABLET 100 MG PO (08:14)
[2021-06-19 10:43] VITALS: BP 158/89; PULSE 62; RESP 14; O2SAT 99
--- NOTE | 2021-06-19 10:45 | PM.DS ---
DS: Providers Provider Date of Service: 06/19/21 Date of admission: 06/18/21 23:56 Primary care physician: Chico Aleman MD DS: Diagnosis Discharge Diagnosis (1) Hypertension, uncontrolled: Status: Acute DS: Summary Hospital Course Hospital Course: from initial hpi: Chief Complaint:? elevated blood pressure ?40-year-old female with a past medical history of hypertension, obesity presented to the hospital with a chief complaint of elevated blood pressure.? Patient reported that she noted to have high blood pressure elevated to 190 systolic; call the PCP to? see the PCP early? but she could not get appointment; but patient was instructed to go to the ER if she develops any headaches blurry visions; today she had headache; when checked her blood pressure systolic was in 200s; subsequently came to the ER for further evaluation.? Denies any headaches blurry visions, numbness tingling or focal weakness at the time of my interview.? Denies any chest pain palpitations lightheadedness or dizziness.? Patient reports that she has been complaint with her home medications.? Mention she was on amlodipine in the past which was giving her cough hands of the was discontinued and started on losartan 50 mg and followed weight was changed to 100 mg.? Mentions she has been complaint with her low-salt diet.? Denies any GI symptoms.? Review of all other systems is negative except mentioned above ER course: Per ER team patient blood pressure was noted to be in? 190s systolic; patient was given IV labetalol initially blood pressure improved to 1 60s but again blood pressure wrist up to 190 systolic; given IV hydralazine.? Patient was also given p.o. metoprolol.? Admitted to the hospital for further management. hospital course: Patient was observed for hypertensive urgency. She was continued on losartan 100 mg daily, metoprolol 25 mg was added, as was nifedipine 30 mg, BP became better controlled, headache resolved, patient had no evidence of end-organ damage. Patient will be discharged home and should follow up with primary care physician for further blood pressure management. She is recommended to lose weight, rule out sleep apnea, avoid salt. Time Spent with Patient Time attestation: Total time spent providing and/or coordinating discharge services: Discharge coordination time: Greater than 30 minutes Quality: Stroke Does the patient have a stroke diagnosis?: No Physical Exam Vital Signs: Vital Signs: Last Vital Signs Temp 98.2 F 06/18/21 15:02 Pulse 62 06/19/21 10:43 Resp 14 06/19/21 10:43 BP 158/89 H 06/19/21 10:43 Pulse Ox 99 06/19/21 10:43 BMI result Body Mass Index 37.8 General: AO X 3, no acute distress Resp: CTA bilateral, no accessory muscles used CVS: S1,S2,RRR GI: soft, non tender, non distended Neuro: motor grossly intact, alert Psych: appropriate affect, appropriate insight DS: Data Data Completed and Pending Labs on day of discharge: Laboratory Results - last 24 hr 06/18/21 06/18/21 06/18/21 17:16 17:16 17:16 WBC 7.7 RBC 5.06 Hgb 13.1 Hct 41.1 MCV 81.2 MCH 25.9 L MCHC 31.9 RDW 13.7 Plt Count 300 MPV 9.3 L Immature Gran % (Auto) 0.1 Neut % (Auto) 53.0 Lymph % (Auto) 36.7 [place] % (Auto) 7.4 Eos % (Auto) 2.1 Baso % (Auto) 0.7 Lymph # (Auto) 2.8 [place] # (Auto) 0.6 Eos # (Auto) 0.2 Baso # (Auto) 0.1 Abs Immat Gran (auto) 0.01 Absolute Neuts (auto) 4.1 Absolute Nucleated RBC 0.000 Nucleated RBC % (auto) 0.0 Sodium 140 Potassium 4.7 D Chloride 107 Carbon Dioxide 26 Anion Gap 12 BUN 12 Creatinine 0.75 Estim Creat Clear Calc 114.4 Estimated GFR > 60 Random Glucose 80 Calcium 9.7 Troponin I High Sens 4.2 COVID-19 (NIA) COVID-19 Clin Com 06/18/21 06/19/21 06/19/21 22:45 06:27 06:27 WBC 8.4 RBC 5.22 Hgb 13.5 Hct 42.3 MCV 81.0 MCH 25.9 L MCHC 31.9 RDW 14.0 Plt Count 293 MPV 9.2 L Immature Gran % (Auto) 0.2 Neut % (Auto) 59.7 Lymph % (Auto) 30.4 [place] % (Auto) 6.9 Eos % (Auto) 2.1 Baso % (Auto) 0.7 Lymph # (Auto) 2.6 [place] # (Auto) 0.6 Eos # (Auto) 0.2 Baso # (Auto) 0.1 Abs Immat Gran (auto) 0.02 Absolute Neuts (auto) 5.0 Absolute Nucleated RBC 0.000 Nucleated RBC % (auto) 0.0 Sodium 140 Potassium 4.1 Chloride 107 Carbon Dioxide 24 Anion Gap 13 BUN 9 Creatinine 0.78 Estim Creat Clear Calc 110.1 Estimated GFR > 60 Random Glucose 92 Calcium 9.3 Troponin I High Sens COVID-19 (NIA) Negative COVID-19 Clin Com See Note Discharge Plan Discharge Patient Disposition: Home, Self-Care Referrals: Chico Aleman MD [Primary Care Provider] - 1 Week Discharge Medications: New metoprolol succinate 25 mg tablet extended release 24 hr 25 mg PO DAILY Qty: 30 0RF nifedipine 30 mg Tablet Extended Release 24 Hr 30 mg PO DAILY Qty: 30 0RF Protocol: Hold for SBP< HOLD for SBP < : 90 Continued levothyroxine [Synthroid] 25 mcg tablet 25 mcg PO DAILY@0600 0RF losartan 100 mg tablet 1 tab PO DAILY@1200 0RF Discharge Orders: Discharge Order (Routine); Ordered 06/19/21 Ordered By: Dmitri Baez Diet: advance to usual diet Activity on Discharge: As tolerated Stand Alone Forms: Patient Portal Discharge page, Work/School Release Activity Restrictions/Additional Instructions: return to ED for any worsening symptoms or concerns Care Plan Goals: bp control Health Concerns: htn Plan of Treatment: continue losartan, start toprol and nifedipine, monitor bp, follow up with pcp, avoid salt Assessment: see above Patient Instructions: Chronic Hypertension (ED)
--- NOTE | 2021-06-19 10:57 | MHC.CM.PN ---
pt dcd home no services ordered by
== END 2021-06-19 11:00 | disposition home or self-care (01) ==
LOC: HO.ED 22:47 → HO.EDOVER 23:59
PROVIDERS: Admitting Provider Hospitalist; Emergency Provider Emergency Medicine; PCP Internal Medicine; Visit Provider Internal Medicine
DX: I16.0 Hypertensive urgency (principal); I10 Essential (primary) hypertension; R51.9 Headache, unspecified; E03.9 Hypothyroidism, unspecified; E66.9 Obesity, unspecified; J45.909 Unspecified asthma, uncomplicated; Z68.37 Body mass index [BMI] 37.0-37.9, adult; Z20.822 Contact with and (suspected) exposure to COVID-19; Z87.891 Personal history of nicotine dependence; Z88.0 Allergy status to penicillin; Z88.2 Allergy status to sulfonamides; Z79.899 Other long term (current) drug therapy
CPT/HCPCS: 36415; 70450; 80048; 84484; 85025; 87635; 93005; 96374; 96375; 99218; 99285

== ENCOUNTER 2024-01-27 11:04 | Outpatient (AMB) | payer OTHER, SELFPAY ==
--- NOTE | 2024-01-27 12:24 | AM.OFFWIN_ITS ---
Intake Vital Signs 01/27/24 12:26 Height 5 ft 4 in Weight 228 lb BMI 39.1 BP 110/70 Blood Pressure Location Lt brachial Position Sitting Pulse 78 Pulse Source Pulse Oximeter Temp 98.0 F Temp Source Oral Pulse Oximetry (%) 96 Oxygen Delivery Method Room Air Intake Visit Reasons: EP Tightness due to cough Intake Note: Pt is here today c/o coughing and headache x5days Patient Tobacco Use Status: Former Tobacco user Allergies Penicillins [PENICILLINS] Allergy (Severe, Verified 01/27/24 12:24) Anaphylaxis Sulfa (Sulfonamide Antibiotics) Allergy (Intermediate, Verified 01/27/24 12:24) Rash HPI EP Tightness due to cough HPI Details Patient is a 43-year-old female comes to the walk-in clinic complaining of 5 days of respiratory symptoms. When it initially started she had sinus pressure and nasal congestion, but that has been resolving and now she feels more of a persistent dry cough associated with coughing fits, and burning and tightness to the chest. She has sme mild intermittent productive phlegm. Symptoms make sleeping difficult, but improve during the day. Albuterol gives her some relief, which she started a few days ago. It has been a long time since she has had to use it however, and reports that her asthma is overall stable. She had COVID a month ago. Denies sore throat, nausea vomiting or diarrhea, dizziness or weakness, myalgias or malaise, or other significant associated symptoms. [facility] [place] Medical History HTN (hypertension) Hypothyroid Obesity Asthma Surgical History S/P cholecystectomy Social History Alcohol intake: current Alcohol intake frequency: a few times a month Patient Tobacco Use Status: Former Tobacco user Substance Use Type: Marijuana Review of Systems Const All systems reviewed & are unremarkable except as noted in HPI and below Physical Exam Vital Signs: Last Vital Signs Temp 98.0 F 01/27/24 12:26 Pulse 78 01/27/24 12:26 BP 110/70 01/27/24 12:26 Pulse Ox 96 01/27/24 12:26 Oxygen Delivery Method Room Air 01/27/24 12:26 BMI result Body Mass Index 39.1 Const General: cooperative, no acute distress, alert, awake, Physically active and well groomed; No diaphoretic, intoxicated appearing, poor hygiene or tired appearing Nutritional Appearance: average body habitus Orientation/consciousness: oriented to person Limitations: no limitations HEENT Head: Yes normal to inspection, Yes normocephalic and Yes atraumatic Ears: hearing grossly normal bilaterally, external ears normal, TM's normal bilaterally and EAC's normal General nose exam: Normal external nose present, Normal nares present, No nasal polyps present, Normal nasal mucous membranes and turbinates present, Normal septum present and No nasal discharge present Face and sinus: Yes normal facial exam, Yes sinuses nontender and Yes face symmetric Mouth: Normal oral and palatal mucosa present, lip normal and tongue normal Throat: Yes posterior oropharynx normal, Yes abnormal tonsil (mildly erythematous bilaterally), No peritonsillar mass, No postnasal drainage, No uvular edema and No cobblestoning Eyes General: appearance normal, both eyes and all related structures Neck Neck: Yes normal visual inspection, Yes full ROM, Yes no lymphadenopathy, Yes trachea midline, Yes supple and No anterior neck swelling Chest Chest palpation & inspection: normal palpation of entire chest wall Resp Effort & Inspection: normal respiratory effort, not able to speak in complete sentences (coughing fits ), abnormal respiratory pattern (at times when coughing), no audible wheezes, Actively coughing Quality: actively coughing, respiratory effort not decreased, no grunting, not labored, no nasal flaring, no pursed lip breathing, no respiratory distress, no retractions, no stridor, not tachypneic, no tripod positioning, no use of accessory muscles, No prolonged expiratory phase and symmetric chest movement Auscultation: clear to auscultation bilaterally, no crackles, no rales, no rhonchi, no wheezes, lung sounds not diminished and No rub present Cardio Palpation: normal PMI Rate: regular rate Rhythm: regular rhythm Heart sounds: S1 normal heart sound present and S2 normal heart sound present Skin Other: Good color, warm and dry Neuro General: oriented to person Psych Appearance: grossly normal Mental Status: mental status grossly normal Speech and movement: Normal speech and movement present Affect: normal affect Attitude: cooperative Thought process: Normal thought process present Insight: Good insight present (Psych) Judgement: Good judgement present (Psych) Office Procedures Nebulizer Treatment Nebulizer Treatment [id number]-Atnhenrti/MDI RX initial, or Nebulizer Subsequent Treatment Office Meds albuterol sulfate 2.5 mg/3 mL (0.083 %) solution for nebulization Performing Provider: JUDIE Milan Performing Location: [facility] Administered by: Nelly Tripathi CMA on 01/27/24 13:48 Dose Route Admin Location Dispensed Lot Number Expiration Date 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 2.5 mg inhalation 3 mL [id number] 12/01/24 0507-8838-69 MYLAN ipratropium 0.5 mg-albuterol 3 mg (2.5 mg base)/3 mL nebulization soln Performing Provider: JUDIE Milan Performing Location: [facility] Administered by: Nelly Tripathi CMA on 01/27/24 13:48 Dose Route Admin Location Dispensed Lot Number Expiration Date 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 3 mL inhalation 3 mL [id number] 05/31/25 09025-858-17 [id number] Results Reviewed Results Reviewed: Plain film chest x-ray looks hazy consistent with asthma exacerbation, but no obvious consolidated areas Assessment & Plan Assessment & Plan (1) Asthma: Code(s): J45.909 - Unspecified asthma, uncomplicated Qualifiers: Asthma complication type: with acute exacerbation Asthma persistence: intermittent Asthma severity: mild Qualified Code(s): J45.21 - Mild intermittent asthma with (acute) exacerbation Plan: Patient is a 43-year-old female with a history of overall stable asthma, who has had multiple recent viral respiratory infections. At this point she has an apparent reactive airway with a frequent reactive cough, but no considerable wheezing or rhonchi sounds. Plain film chest x-ray looks hazy consistent with asthma exacerbation, but no obvious consolidated areas. However due to the frequency of the cough, we discussed a duoneb, which did give her relief. Her respiratory quality was better after the treatment, as it relaxed the coughing fits. She has albuterol at home as needed, and I advised that she start a pred taper as well as an antibiotic, and she can trial benzonatate. She knows to follow up if symptoms persist or worsen, or she should go to the emergency department with worrisome symptoms. Orders: Orders XR chest 2V 01/27/24 R05.9 - Cough, unspecified AMB Nebulizer Treatment 01/27/24 J45.909 - Unspecified asthma, uncomplicated Medications: New azithromycin take 500 mg today (day 1), then 250 mg for 4 days (days 2-5) PO 6 tabs 0RF benzonatate 100 mg PO BID-TID PRN 30 caps 0RF cough prednisone then take 3 tabs for 3 days, then 2 tabs for 3 days, then 1 tab for 3 days. 40 mg (4 x 10 mg) PO DAILY 30 tabs 0RF 3 days Coding Level of Care Code Est Pt Level 4 (76325) Diagnoses Mild intermittent asthma with acute exacerbation J45.21 Asthma complication type: with acute exacerbation Asthma persistence: intermittent Asthma severity: mild CPT Codes Nebulizer Treatment - Nebulizer Treatment, initial or subsequent: 00116- Nebulizer/MDI RX initial, or Nebulizer Subsequent Treatment ([id number])
[2024-01-27 12:26] VITALS: BP 110/70; PULSE 78; TEMP 36.7; O2SAT 96; BMI 39.1
== END 2024-01-27 13:58 | disposition home or self-care (01) ==
PROVIDERS: PCP Internal Medicine; Visit Provider Physician Assistant Medical
DX: J45.21 Mild intermittent asthma with (acute) exacerbation (principal)

== ENCOUNTER 2024-01-27 11:04 | Outpatient (REF) | payer OTHER, SELFPAY ==
--- NOTE | ~2024-01-27 | XR_ITS ---
EXAMINATION: XR CHEST CLINICAL INFORMATION: Cough COMPARISON: None available. TECHNIQUE: 2 views of the chest were obtained. FINDINGS: No significant abnormality is noted involving the heart, lungs, mediastinum, bony thorax or soft tissues. XR/XR chest 2V IMPRESSION: Unremarkable examination. Electronically signed by: Catracihta Alva MD 01/27/2024 01:26 PM EDT RP
== END 2024-01-27 11:05 | disposition home or self-care (01) ==
LOC: HO.HMGCX 11:04
PROVIDERS: PCP Internal Medicine; Visit Provider Physician Assistant Medical
DX: R05.9 Cough, unspecified (principal); J45.21 Mild intermittent asthma with (acute) exacerbation
CPT/HCPCS: 71046; 94640

== ENCOUNTER 2024-02-28 14:08 | Outpatient (AMB) | payer OTHER, SELFPAY ==
[2024-02-28 14:42] VITALS: BP 110/80; PULSE 102; TEMP 37.3; O2SAT 98
--- NOTE | 2024-02-28 14:42 | AM.OFFWIN_ITS ---
Intake Vital Signs 02/28/24 14:42 Weight 232 lb BP 110/80 Blood Pressure Location Lt brachial Position Sitting Pulse 102 H Pulse Source Pulse Oximeter Temp 99.2 F Temp Source Oral Pulse Oximetry (%) 98 Oxygen Delivery Method Room Air Intake Visit Reasons: EP sore throat, body aches Intake Note: Patient here for body aches,fevers, congestions and sore throat. Patient Tobacco Use Status: Former Tobacco user Allergies Penicillins [PENICILLINS] Allergy (Severe, Verified 02/28/24 14:49) Anaphylaxis Sulfa (Sulfonamide Antibiotics) Allergy (Intermediate, Verified 02/28/24 14:49) Rash Do you need a note to return to daycare/school/sports/work: No HPI HPI Comments History of Present Illness Details History of Present Illness The patient is a 43-year-old female presenting with sore throat and associated symptoms. She reports that symptoms onset was last night, following a busy day starting at 5:00 AM and ending at 11:00 PM. Initially, she experienced body aches, chills, and a sore throat. This morning, her symptoms progressed to include a headache and fever. She measured her temperature at home and recorded values of 101?F and 101.2?F despite taking Tylenol for arthritis. 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 She is currently experiencing a decreased but persistent fever of 99?F. On questioning, the rapid strep test performed in-office was positive, and she reported a throat stone earlier today. She has a notable allergy to amoxicillin. She denies a cough. Physical Exam - Throat- Visible white patches observed on the oropharynx, consistent with bacterial pharyngitis. PFSH Medical History HTN (hypertension) Hypothyroid Obesity Asthma Surgical History S/P cholecystectomy Social History Alcohol intake: current Alcohol intake frequency: a few times a month Patient Tobacco Use Status: Former Tobacco user Substance Use Type: Marijuana Physical Exam Vital Signs: Last Vital Signs Temp 99.2 F 02/28/24 14:42 Pulse 102 H 02/28/24 14:42 BP 110/80 02/28/24 14:42 Pulse Ox 98 02/28/24 14:42 Oxygen Delivery Method Room Air 02/28/24 14:42 Const General: cooperative, healthy appearing, comfortable and no acute distress Orientation/consciousness: patient oriented x3 Limitations: no limitations HEENT Head: Yes normal to inspection Ears: hearing grossly normal bilaterally and external ears normal General nose exam: Normal external nose present, Normal nares present and No nasal discharge present Face and sinus: Yes normal facial exam and Yes sinuses nontender Mouth: Normal oral and palatal mucosa present and moist mucous membranes Throat: Yes tonsils normal, Yes uvula midline and Yes posterior oropharynx abnormal (Erythema with exudates) Eyes General: appearance normal, both eyes and all related structures Neck Neck: Yes normal visual inspection Resp Effort & Inspection: normal respiratory effort, able to speak in complete sentences, no respiratory distress, not tachypneic, no tripod positioning and no use of accessory muscles Skin General skin exam: no rashes or lesions noted Neuro General: patient oriented x3 Extrem General: Yes normal to inspection and Yes no clubbing, cyanosis or edema Results AMB Rapid Strep AMB Rapid Strep Positive Last Edit by BARB Davenport on 02/28/24 15:06 Results Reviewed Results Reviewed: Laboratory Last Values Strep Scn Rapid Clinic Positive 02/28/24 15:05 Assessment & Plan Assessment & Plan (1) Acute streptococcal pharyngitis: Code(s): J02.0 - Streptococcal pharyngitis Plan: Rapid strep in office is positive. Initiate antibiotic therapy with Azithromycin due to the patient's allergy to amoxicillin. I informed the patient that she would remain contagious until 48-72 hours after starting antibiotics and recommended she consider rescheduling her to Monday. The patient expressed understanding and agreement with this management plan. The patient should monitor her temperature and symptoms and follow up if symptoms persist or worsen. Patient was informed and verbally consented to the use of an ambient scribe for clinic note documentation during this visit. Orders: Orders AMB Rapid Strep Screen Today Z13.9 - Encounter for screening, unspecified Medications: New azithromycin 500 mg PO DAILY 5 tabs 0RF 5 days Coding Level of Care Code New Pt Level 3 (05509) Diagnoses Acute streptococcal pharyngitis J02.0
== END 2024-02-28 15:32 | disposition home or self-care (01) ==
PROVIDERS: PCP Internal Medicine; Visit Provider Physician Assistant
DX: J02.0 Streptococcal pharyngitis (principal); Z13.9 Encounter for screening, unspecified

== ENCOUNTER → 2024-02-28 14:08 | Outpatient (BNVA) | payer OTHER, SELFPAY | PROVIDERS: PCP Internal Medicine; Visit Provider Physician Assistant | DX: J02.0 Streptococcal pharyngitis (principal) | CPT/HCPCS: 87880 ==

== ENCOUNTER 2024-03-25 08:02 | Outpatient (AMB) | payer OTHER, SELFPAY ==
--- NOTE | 2024-03-25 08:29 | AM.OFFWIN_ITS ---
Intake Vital Signs 03/25/24 08:34 Weight 231 lb BP 118/74 Blood Pressure Location Rt brachial Position Sitting Pulse 82 Pulse Source Pulse Oximeter Pulse Oximetry (%) 98 Oxygen Delivery Method Room Air Intake Visit Reasons: EP Rt knee pain Intake Note: Patient here for right knee pain that started on 03/14. no known injuries. Patient Tobacco Use Status: Former Tobacco user Allergies Penicillins [PENICILLINS] Allergy (Severe, Verified 03/25/24 08:34) Anaphylaxis Sulfa (Sulfonamide Antibiotics) Allergy (Intermediate, Verified 03/25/24 08:34) Rash Do you need a note to return to daycare/school/sports/work: No HPI EP Rt knee pain HPI Details This note is constructed using voice recognition software. While every effort has been made to ensure accuracy, cat sitter errors may have been included. The patient is a 43 year old female who presents to the clinic today with right knee pain for the past week and a half. She denies any specific injury, falls, or previous injury to the area or previous surgeries. She reports that the area hurts to the lateral aspect and beneath her kneecap, worse if she is putting pressure on the area. She denies any difficulty walking or limping. [facility] [place] Medical History HTN (hypertension) Hypothyroid Obesity Asthma Surgical History S/P cholecystectomy Social History Alcohol intake: current Alcohol intake frequency: a few times a month Patient Tobacco Use Status: Former Tobacco user Substance Use Type: Marijuana Review of Systems Const All systems reviewed & are unremarkable except as noted in HPI and below Physical Exam Vital Signs: Last Vital Signs Pulse 82 03/25/24 08:34 BP 118/74 03/25/24 08:34 Pulse Ox 98 03/25/24 08:34 Oxygen Delivery Method Room Air 03/25/24 08:34 Const General: cooperative, healthy appearing, comfortable, no acute distress and well developed Orientation/consciousness: patient oriented x3 Limitations: no limitations Resp Effort & Inspection: normal respiratory effort and able to speak in complete sentences Skin General skin exam: no rashes or lesions noted Neuro General: patient oriented x3 Extrem Other: Right knee full range of motion. Tenderness to palpation along lateral joint line. Strength 5/5. Distal neurovascular exam intact. General: Yes normal to inspection Assessment & Plan Assessment & Plan (1) Right knee sprain: Code(s): S83.91XA - Sprain of unspecified site of right knee, initial encounter Qualifiers: Encounter type: initial encounter Involved ligament of knee: unspecified ligament Qualified Code(s): S83.91XA - Sprain of unspecified site of right knee, initial encounter Plan: History and physical examination likely consistent with grade 1 sprain. Advised rest, ice, compression, elevation. Advised trial of NSAIDs for symptomatic management. No indication for imaging at this time. Advised follow up with PCP as needed with worsening or failure to resolve. Plan See above for full details and plan. Coding Level of Care Code Est Pt Level 3 (81343) Diagnoses Sprain of right knee, unspecified ligament, initial encounter S83.91XA Encounter type: initial encounter Involved ligament of knee: unspecified ligament
[2024-03-25 08:34] VITALS: BP 118/74; PULSE 82; O2SAT 98
== END 2024-03-25 09:21 | disposition home or self-care (01) ==
PROVIDERS: PCP Internal Medicine; Visit Provider Registered Nurse
DX: S83.91XA Sprain of unspecified site of right knee, initial encounter (principal)

== ENCOUNTER → 2024-03-25 08:02 | Outpatient (BNVA) | payer OTHER, SELFPAY | PROVIDERS: PCP Internal Medicine; Visit Provider Registered Nurse ==

== ENCOUNTER 2025-01-22 13:00 | Outpatient (REF) | payer OTHER, SELFPAY ==
--- OUTSIDE RECORDS SUMMARY | 2025-01-22 20:33 | XMS_ITS | Encounter Summary ---
Author Organization [facility] Address [address] [place] [address] Care Team Providers Care Supervisor Boatbuilders Wood Name Role Phone Chico Aleman MD Primary Care Provider [phone] Rodrick Carrillo MD Unavailable Unavailable Ken Webb MD Unavailable [phone] Reason for Visit * Reason Onset Date Comments refill request 02/09/2022 Encounter Details Date Type Department Care Team Description 02/09/2022 Refill Adult Medicine - [address] [address] Chico Aleman MD [address] [place] [address] refill request Social History Tobacco Use Types Packs/Day Years Used Date Smoking Tobacco: Former Cigarettes 0.1 24 0 04/03/1992 - 03/22/2018 Smokeless Tobacco: Never Alcohol Use Standard Drinks/Week Comments Yes 0 (1 standard drink = 0.6 oz pur e alcohol) socially Sex Assigned at Date Recorded Not on file Job Start Date Occupation Industry Not on file Not on file Not on file COVID-19 Exposure Response Date Recorded In the last 10 days, have yo u been in contact with someone who was confirmed or suspected to have Coronavirus/COVID-19? No / Unsure 02/11/2022 9:02 AM EST documented as of this encounter Miscellaneous Notes * Telephone Encounter - Odilia Richar - 02/10/2022 5:00 PM EST Cornelia haves appointment tomorrow with pcp at 9:15 am . ADRIANNA FRANCO * Telephone Encounter - Raquel Castillo - 02/10/2022 4:35 PM EST Left message to call the office back. When patient calls the office back please call [phone] * Telephone Encounter - Rosita Molina NP - 02/10/2022 3:54 PM EST Please call patient and schedule IN OFFICE appt for anyone on the care team Once scheduled, can send in fill * Telephone Encounter - Margret Milner M.A. - 02/10/2022 11:56 AM EST Date of last office visit was 07/19/21 Lab Results Component Value Date NA 139 08/19/2021 K 3.9 08/19/2021 CO2 27 08/19/2021 CL 104 08/19/2021 BUN 13 08/19/2021 CREAT 0.84 08/19/2021 GLU 98 08/19/2021 CA 8.7 08/19/2021 GFR > 60 08/19/2021 * Telephone Encounter - Jana Manzo - 02/10/2022 11:54 AM EST Patient would like script to be: E-PRESCRIBED/FAXED TO PHARMACY WHEN WAS THE PATIENT'S LAST APPOINTMENT IN ADULT MEDICINE? 07/19/21 WHEN WAS THE LAST TIME THE PATIENT SAW THEIR PCP? 02/26/21 Does patient have an upcoming appointment? Sent my chart (THE MEDICATION REQUESTED IS ON THE MED LIST ABOVE) All of the medications requested were on the CURRENT MEDS list Did you check the Pharmacy information above?: YES Patient wants: 90 -day supply Is this a mail order prescription request ? YES If the refill is from a FAXED refill request what is the RX # listed on the fax? N/A Patients current insurance carrier is: Payor: [employer] / Plan: [employer] $20 TAMIA 1500 / Product Type: PinstripeO [id number] * Telephone Encounter - Margret Milner M.A. - 02/10/2022 10:33 AM EST Please call the pt to schedule a med rev for . Pt was due for f/u in January. Thank you documented in this encounter Plan of Treatment Not on file documented as of this encounter Visit Diagnoses Diagnosis Essential hypertension Unspecified essential hypertension documented in this encounter Care Teams Supervisor Boatbuilders Wood Relationship Specialty Start Date End Date Chico Aleman MD [address] [place] [address] PCP - General Internal Medicine 06/12/20 Rodrick Carrillo MD [address] [place] [address] Specialist Cardiovascular Disease 06/23/2109/01 Ken Webb MD [address] [place] [address] [address] [place] [address] Janitorial Assistant Cardiovascular Disease 09/21/23 documented as of this encounter
--- OUTSIDE RECORDS SUMMARY | 2025-01-22 20:33 | XMS_ITS | Encounter Summary ---
Author Organization [facility] Address [address] [place] [address] Care Team Providers Care Farm Contractor Name Role Phone Chico Aleman MD Primary Care Provider [phone] Ken Webb MD Unavailable [phone] Encounter Details Date Type Department Care Team Description 09/22/2023 Facility Sales And Admin Report Medical Records [address] [place] [address] Pierre Hoffman MD Social History Tobacco Use Types Packs/Day Years Used Date Smoking Tobacco: Former Cigarettes 0.1 24 0 04/03/1992 - 03/22/2018 Smokeless Tobacco: Never Alcohol Use Standard Drinks/Week Comments Yes 0 (1 standard drink = 0.6 oz pur e alcohol) socially Sex Assigned at Date Recorded Not on file Job Start Date Occupation Industry Not on file Not on file Not on file documented as of this encounter Plan of Treatment Not on file documented as of this encounter Visit Diagnoses Not on filedocumented in this encounter Care Teams Farm Contractor Relationship Specialty Start Date End Date Chico Aleman MD [address] [place] [address] PCP - General Internal Medicine 06/12/20 Ken Webb MD [address] [place] [address] [address] [place] [address] Medical Supply Technician Cardiovascular Disease 09/21/23 documented as of this encounter
--- OUTSIDE RECORDS SUMMARY | 2025-01-22 20:33 | XMS_ITS | Encounter Summary ---
Author Organization [facility] Address [address] [place] [address] Care Team Providers Care Customer Experience Retail Clerk Name Role Phone Chico Aleman MD Primary Care Provider [phone] Rodrick Carrillo MD Unavailable Unavailable Ken Webb MD Unavailable [phone] Encounter Details Date Type Department Care Team Description 01/27/2023 Orders Only Medical Records [address] [place] [address] Vinnie Terry MD Social History Tobacco Use Types Packs/Day [...] on file documented as of this encounter Procedures Procedure Name Priority Date/Time Associated Diagnosis Comments OUTSIDE MAMMO Routine 10/25/2022 OUTSIDE ULTRASOUND Routine 10/25/2022 OUTSIDE MAMMO Routine 10/14/2022 documented in this encounter Results * OUTSIDE MAMMO (10/25/2022) Vinnie Terry MD RADIOLOGY * OUTSIDE ULTRASOUND (10/25/2022) Vinnie Terry MD RADIOLOGY * OUTSIDE MAMMO (10/14/2022) Vinnie Terry MD RADIOLOGY documented in this encounter Visit Diagnoses Not on filedocumented in this encounter Care Teams Customer Experience Retail Clerk Relationship Specialty Start Date End Date Chico Aleman MD [address] [place] [address] PCP - General Internal Medicine 06/12/20 Rodrick Carrillo MD [address] [place] [address] Specialist Cardiovascular Disease 06/23/2109/01 Ken Webb MD [address] [place] [address] [address] [place] [address] Pathology Supervisor Cardiovascular Disease 09/21/23 documented as of this encounter
--- OUTSIDE RECORDS SUMMARY | 2025-01-22 20:33 | XMS_ITS | Encounter Summary ---
Author Organization [facility] Address [address] [place] [address] Care Team Providers Care Life Skills Teacher Name Role Phone Dg Espinoza MD Primary Care Provider Unavail able Chico Aleman MD Primary Care Provider [phone] Rodrick Carrillo MD Unavailable Unavailable Ken Webb MD Unavailable [phone] Encounter Details Date Type Department Care Team Description 09/16/2019 Pt. Non Urgent Medical Question Adult Medicine [address] [address] Dg Espinoza MD Social History Tobacco Use Types Packs/Day [...] as of this encounter Progress Notes * Margret Milner M.A. - 09/17/2019 10:41 AM EDTFrom: Cornelia Talha To: Dg Espinoza MD Sent: 09/16/2019 6:43 PM EDT Subject: Testing Good Evening, I have to to into the clinic for blood work before the 30t of this month to recheck my TSH/T3/T4 levels. I was wondering if I could get my blood tested for COVID19 antibodies? I was very sick in April and everyone in my home was sick. I was tested for the flu but tested negative. They diagnosed me with a n upper respitory virus and asthma. Everyone in my home was also diagnosed with a sort of upper respitory virus. I am curious to know if what we had was COVID documented in this encounter Plan of Treatment Not on file documented as of this encounter Visit Diagnoses Not on filedocumented in this encounter Care Teams Life Skills Teacher Relationship Specialty Start Date End Date Dg Espinoza MD PCP - General Internal Medicine 02/24/16 06/11/20 Chico Aleman MD [address] [place] [address] PCP - General Internal Medicine 06/12/20 Rodrick Carrillo MD [address] [place] [address] Specialist Cardiovascular Disease 06/23/2109/01 Ken Wbeb MD [address] [place] [address] [address] [place] [address] Die Cast Patternmaker Cardiovascular Disease 09/21/23 documented as of this encounter
--- OUTSIDE RECORDS SUMMARY | 2025-01-22 20:33 | XMS_ITS | Clinical Summary ---
Author Organization [facility] Address [address] [facility] [place] [address] Care Team Providers Care Grit Blaster Name Role Phone Chico Aleman MD Primary Care Provider [phone] Ken Webb MD Unavailable [phone] Allergies Active Allergy Reactions Severity Noted Date Comments Amlodipine 01/05/2021 Dry cough, rapid heartrate, nausea and diziness Penicillins Anaphylaxis High 08/15/2014 Seasonal Allergies 10/06/2016 Sulfa Drugs Hives/Urticaria 08/15/2014 Medications Medication Sig Dispensed Refills Start Date End Date Status Scopolamine 1 MG/3DAYS PATCH [address] 1 mg onto the skin every 3 days. Apply 1 patch to hairless area behind ear at least4 hours prior to exposure and every 3 days as needed. 5 Patch 0 06/09/2023 Active Risankizumab-rzaa 150 MG/ML Solution Prefilled Syringe Inject 150 mg into the skin Every 3 Months. 0 Active losartan (COZAAR) 100 MG tablet Take 1 Tablet by mouth daily. 90 Tablet 1 09/19/2023 Active levothyroxine (SYNTHROID, LEVOTHROID) 25 MCG tablet Take 1 Tablet by mouth every other day. 45 Tablet 1 09/19/2023 Active ALBUTEROL SULFATE 108 (90 Base) MCG/ACT Aero Soln Inhale 2 Puffs into the lungs 4 times daily as needed for Cough or Wheezing. 1 g 2 12/21/2023 Active hydrochlorothiazide (MICROZIDE) 12.5 MG capsule Take 1 Capsule by mouth daily for 180 days. 90 Capsule 1 12/21/2023 Active Active Problems Problem Noted Date Right carpal tunnel syndrome 07/26/2023 Abnormal mammogram 01/25/2023 Overview: 10/25/22 R breast - 3-4 mm cyst vs solid mass; repeat mammo + US in 6 months (ordered/managed by Dr. 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 Obesity (BMI 30-39.9) 10/06/2016 Nontoxic uninodular goiter 04/01/2015 Depression 09/17/2014 Allergic rhinitis 09/17/2014 Metabolic syndrome 09/17/2014 Hypertension 09/17/2014 Last Assessment & Plan: Patient's blood pressure [...] be secondary to stabilization of her thyroid PCOS (polycystic ovarian syndrome) 09/17 Asthma 08/15/2014 Acanthosis nigricans 08/15/2014 Multiple thyroid nodules Resolved Problems Problem Noted Date Resolved Date Hypothyroidism 09/17/2014 10/06/2016 Immunizations Name Administration Dates Next Due COVID-19 (Pfizer) 02/02/2022,,07/11/2020,2020 Hepatitis B > 19yrs 01/30/2006 Influenza (> 6 Months) 12/21/2023 Influenza Flu (PT Reported) 02/02/2022 Influenza Vaccine-preservati ve Free-quadrivalent 4 Years 12/27/2022,01/05/2021 Pneumococcal Conjugate PCV-13 10/06/2016 TD (STATE SUPPLIED FOR ADULT S AND CHILDREN) 07/19/2021 Tdap 11/11/2009 Family History Medical History Relation Name Comments Hypothyroid Father goiter Mother CA Breast Mother's side great aunt (in 60s, one breast) CAD Paternal Grandfather Relation Name Status Comments Father [...] file Not on file Not on file Last Filed Vital Signs Vital Sign Reading Time Taken Comments Blood Pressure 114/70 09/21/2023 8:12 AM EDT Pulse 76 09/21/2023 8:12 AM EDT Temperature 37.1 C (98.8 F) 12/27/2022 3:25 PM EDT Respiratory Rate 18 12/27/2022 3:25 PM EDT Oxygen Saturation 99% 09/21/2023 8:12 AM EDT Inhaled Oxygen Concentration - - Weight 102.5 kg (226 lb) 09/21/2023 8:12 AM EDT Height 162.6 cm (5' 4 ) 09/21/2023 8:12 AM EDT Body Mass Index 38.79 09/21/2023 8:12 AM EDT Plan of Treatment Health Maintenance Due Date Last Done Comments CERVICAL CANCER SCREENING 08/24/20212018, 02/24/2016, 01/11/2016 MAMMOGRAM 10/26/2023 10/25/2022, 10/01, 10/08/2021 BMI CHECK/ADVISE 04/03/2024 12/21/2023, 03/2024, 04/06/2023, Additional history exists DEPRESSION SCREENING/FOLLOWUP 04/03/2024, 07/19/2021, 08/24/2018, Additional history exists SOCIAL NEEDS SCREENING 04/03/2024 , 07/19/2021, 01/14/2019 Covid-19 Vaccine (5 - 2022-2 4 season) 2024 02/02/2022, 01/26/2021, 07/11/2020, Additional history exists INFLUENZA (#1) 2024 12/21/2023, 12/03, 02/02/2022, Additional history exists BASELINE HEALTH EXAM 40-64 07/13/202507/13, 07/14/2023, 01/14/2019, Additional history exists CHOLESTEROL SCREENING 07/13/2028 07/14/2023 , 01/09/2023, 02/14/2022, Additional history exists DTAP/TDAP/TD (3 - Td or Tdap) 07/20/2031 07/19/2021, 11/11/2009 PNEUMOCOCCAL VACCINE FOR HIG H RISK PATIENTS (#2) 2045 10/06/2016 Care Teams Grit Blaster Relationship Specialty Start Date End Date Chico Aleman MD [address] [place] [address] PCP - General Internal Medicine 06/12/20 Ken Webb MD [address] [place] [place] [address] [address] [place] [address] Injection Operator Cardiovascular Disease 09/21/23
--- OUTSIDE RECORDS SUMMARY | 2025-01-22 20:33 | XMS_ITS | Encounter Summary ---
Author Organization [facility] Address [address] [place] [address] Care Team Providers Care Chief Mechanical Officer Name Role Phone Dg Espinoza MD Primary Care Provider Unavail able Chico Aleman MD Primary Care Provider [phone] Rodrick Carrillo MD Unavailable Unavailable Ken Webb MD Unavailable [phone] Reason for Visit * Reason Onset Date Comments TEST RESULTS 06/11/2020 Encounter Details Date Type Department Care Team Description 06/11/2020 Telephone Adult Medicine [address] [address] Dg Espinoza MD TEST RESULTS Social History Tobacco Use Types Packs/Day Years [...] Exposure Response Date Recorded In the last month, have you been in contact with someone who was confirmed or suspected to have Coronavirus / COVID-19? No / Unsure 06/06/2020 8:42 AM EST documented as of this encounter Miscellaneous Notes * Telephone Encounter - Lili Bhardwaj M.A. - 06/11/2020 1:50 PM EST Left message to return call, please put call through to [phone] or re message to message pool Please inform pt that endo is out of office and find out who new pcp is. * Telephone Encounter - Jocelyn Vickers APRN - 06/11/2020 1:37 PM EST I am covering Anselmo, please forward to covering provider * Telephone Encounter - Lili Bhardwaj M.A. - 06/11/2020 1:27 PM EST Please review labs 06/06/20 and advise pt mychart correspondence as the endo team is out of office. * Telephone Encounter - Catrachito Mackey - 06/11/2020 12:03 PM EST Pt called back regarding test results. Pt wants to know if dr is going to up dosage of meds due to labs being elevated. documented in this encounter Plan of Treatment Not on file documented as of this encounter Visit Diagnoses Not on filedocumented in this encounter Care Teams Chief Mechanical Officer Relationship Specialty Start Date End Date Dg Espinoza MD PCP - General Internal Medicine 02/24/16 06/11/20 Chico Aleman MD [address] [place] [address] PCP - General Internal Medicine 06/12/20 Rodrick Carrillo MD [address] [place] [address] Specialist Cardiovascular Disease 06/23/2109/01 Ken Webb MD [address] [place] [address] [address] [place] [address] Plastic Block Boiler Reliner Cardiovascular Disease 09/21/23 documented as of this encounter
--- OUTSIDE RECORDS SUMMARY | 2025-01-22 20:33 | XMS_ITS | Encounter Summary ---
Author Organization [facility] Address [address] [place] [address] Care Team Providers Care Mosaic Worker Name Role Phone Chico Aleman MD Primary Care Provider [phone] Rodrick Carrillo MD Unavailable Unavailable Ken Webb MD Unavailable [phone] Encounter Details Date Type Department Care Team Description 09/19/2023 SCAN Medical Records [address] [place] [address] Liza Walton PA-C Social History Tobacco Use Types Packs/Day Years [...] Name Priority Date/Time Associated Diagnosis Comments OUTSIDE LAB Routine 09/19/2023 OUTSIDE LAB Routine 09/19/2023 documented in this encounter Results * OUTSIDE LAB (09/19/2023) Provider Default LAB * OUTSIDE LAB (09/19/2023) Provider Default LAB documented in this encounter Visit Diagnoses Not on filedocumented in this encounter Care Teams Mosaic Worker Relationship Specialty Start Date End Date Chico Aleman MD [address] [place] [address] PCP - General Internal Medicine 06/12/20 Rodrick Carrillo MD [address] [place] [address] Specialist Cardiovascular Disease 06/23/2109/01 Ken Webb MD [address] [place] [address] [address] [place] [address] Chainstitch Sewing Machine Operator Cardiovascular Disease 09/21/23 documented as of this encounter
--- OUTSIDE RECORDS SUMMARY | 2025-01-22 20:33 | XMS_ITS | Encounter Summary ---
Author Organization [facility] Address [address] [place] [address] Care Team Providers Care Parallel Computing Software Engineer Name Role Phone Chico Aleman MD Primary Care Provider [phone] Rodrick Carrillo MD Unavailable Unavailable Ken Webb MD Unavailable [phone] Encounter Details Date Type Department Care Team Description 04/20/2022 SCAN [facility] [address] [phone] Juana Drew PA-C [address] [address] Social History Tobacco Use Types Packs/Day Years [...] suspected to have Coronavirus/COVID-19? No / Unsure 04/12/2022 3:23 PM EST documented as of this encounter Plan of Treatment Not on file documented as of this encounter Visit Diagnoses Not on filedocumented in this encounter Care Teams Parallel Computing Software Engineer Relationship Specialty Start Date End Date Chico Aleman MD [address] [place] [address] PCP - General Internal Medicine 06/12/20 Rodrick Carrillo MD [address] [place] [address] Specialist Cardiovascular Disease 06/23/2109/01 Ken Webb MD [address] [place] [address] [address] [place] [address] Restaurant District Manager Cardiovascular Disease 09/21/23 documented as of this encounter
--- OUTSIDE RECORDS SUMMARY | 2025-01-22 20:33 | XMS_ITS | Encounter Summary ---
Author Organization [facility] Address [address] [place] [address] Care Team Providers Care Bench Machine Operator Name Role Phone Chico Aleman MD Primary Care Provider [phone] Rodrick Carrillo MD Unavailable Unavailable Ken Webb MD Unavailable [phone] Reason for Visit * Reason Onset Date Comments refill request 11/28/2022 Encounter Details Date Type Department Care Team Description 11/28/2022 Refill Adult Medicine - [address] [address] Chico Aleman MD [address] [place] [address] refill request Social History Tobacco Use Types [...] suspected to have Coronavirus/COVID-19? No / Unsure 11/24/2022 3:28 PM EDT documented as of this encounter Miscellaneous Notes * Telephone Encounter - Odilia Richar - 11/28/2022 4:33 PM EDT Rx's sent electronically to pharmacy [facility] * Telephone Encounter - Megha Pepper M.A. - 11/28/2022 1:47 PM EDT Jeff 11/24/22 pended appt 12/27/22 Lab Results Component Value Date NA 141 10/28/2022 K 4.1 10/28/2022 CO2 30 10/28/2022 CL 106 10/28/2022 BUN 10 10/28/2022 CREAT 0.76 10/28/2022 GLU 128 10/28/2022 CA 9.2 10/28/2022 GFR 100 10/28/2022 * Telephone Encounter - Sascha Morales - 11/28/2022 12:01 PM EDT Patient would like script to be: E-PRESCRIBED/FAXED TO PHARMACY WHEN WAS THE PATIENT'S LAST APPOINTMENT IN ADULT MEDICINE? 11/24/22 WHEN WAS THE LAST TIME THE PATIENT SAW THEIR PCP? Same as above Does patient have an upcoming appointment? Yes 12/27/22 (THE MEDICATION REQUESTED IS ON THE MED LIST ABOVE) All of the medications requested were on the CURRENT MEDS list Did you check the Pharmacy information above?: YES Patient wants: 90 -day supply Is this a mail order prescription request ? NO If the refill is from a FAXED refill request what is the RX # listed on the fax? N/A Patients current insurance carrier is: Payor: [facility] SELF FUNDED / Plan: HMO $20 DOLOMITE 1500 / Product Type: HMO [id number] documented in this encounter Plan of Treatment Not on file documented as of this encounter Visit Diagnoses Diagnosis Essential hypertension Unspecified essential hypertension documented in this encounter Care Teams Bench Machine Operator Relationship Specialty Start Date End Date Chico Aleman MD [address] [place] [address] PCP - General Internal Medicine 06/12/20 Rodrick Carrillo MD [address] [place] [address] Specialist Cardiovascular Disease 06/23/2109/01 Ken Webb MD [address] [place] [address] [address] [place] [address] Used Equipment Sales Representative Cardiovascular Disease 09/21/23 documented as of this encounter
--- OUTSIDE RECORDS SUMMARY | 2025-01-22 20:33 | XMS_ITS | Encounter Summary ---
Author Organization [facility] Address [address] [place] [address] Care Team Providers Care Ui Developer With Angular Js Name Role Phone Chico Aleman MD Primary Care Provider [phone] Rodrick Carrillo MD Unavailable Unavailable Ken Webb MD Unavailable [phone] Encounter Details Date Type Department Care Team Description 06/23/2021 SCAN Medical Records [address] [place], [place] [id number] [place] [address] Social History Tobacco Use Types Packs/Day Years [...] Recorded In the last 10 days, have arlet u been in contact with someone who was confirmed or suspected to have Coronavirus/COVID-19? No / Unsure 2021 3:00 PM EDT documented as of this encounter Plan of Treatment Not on file documented as of this encounter Visit Diagnoses Not on filedocumented in this encounter Care Teams Ui Developer With Angular Js Relationship Specialty Start Date End Date Chico Aleman MD [address] [place] [address] PCP - General Internal Medicine 06/12/20 Rodrick Carrillo MD [address] [place] [address] Specialist Cardiovascular Disease 06/23/2109/01 Ken Webb MD [address] [place] [address] [address]IVE [address] [place] [address] Director Of Assisted Living Cardiovascular Disease 09/21/23 documented as of this encounter
--- OUTSIDE RECORDS SUMMARY | 2025-01-22 20:33 | XMS_ITS | Encounter Summary ---
Author Organization [facility] Address [address] [place] [address] Care Team Providers Care Long Term Care Phlebotomist Name Role Phone Marbella Perkins MD Primary Care Provider Mehdi Coppola MD Primary Care Provider Unavaila Dg Villafana MD Primary Care Provider Unavail able Chico Aleman MD Primary Care Provider [phone] Rodrick Carrillo MD Unavailable Unavailable Ken Webb MD Unavailable [phone] Encounter Details Date Type Department Care Team Description 08/19/2014 Release of Information Medical Records [address] [place] [address] Abstract, Provider Social History Tobacco Use Types Packs/Day Years Used Date Smoking Tobacco: Every Day Cigarettes 0.1 Smokeless Tobacco: Never Alcohol Use Standard Drinks/Week [...] on filedocumented in this encounter Care Teams Long Term Care Phlebotomist Relationship Specialty Start Date End Date Marbella Perkins MD PCP - General Internal Medicine 08/14/14 12/31/14 Mehdi Bernardo MD PCP - General Internal Medicine 01/01/15 02/23/16 Dg Espinoza MD PCP - General Internal Medicine 02/24/16 06/11/20 Chico Aleman MD [address] [place] [address] PCP - General Internal Medicine 06/12/20 Rodrick Carrillo MD [address] [place] [address] Specialist Cardiovascular Disease 06/23/2109/01 Ken Webb MD [address] [place] [address] [address]IVE [address] [place] [address] Diesel Technician Cardiovascular Disease 09/21/23 documented as of this encounter
--- OUTSIDE RECORDS SUMMARY | 2025-01-22 20:33 | XMS_ITS | Encounter Summary ---
Author Organization [facility] Address [address] [place] [address] Care Team Providers Care Gas Pumping Station Operator Name Role Phone Dg Espinoza MD Primary Care Provider Unavail able Chico Aleman MD Primary Care Provider [phone] Rodrick Carrillo MD Unavailable Unavailable Ken Webb MD Unavailable [phone] Encounter Details Date Type Department Care Team Description 09/10/2018 Release of Information Medical Records [address] [place] [address] Abstract, Provider Social History Tobacco Use Types [...] on filedocumented in this encounter Care Teams Gas Pumping Station Operator Relationship Specialty Start Date End Date Dg Espinoza MD PCP - General Internal Medicine 02/24/16 06/11/20 Chico Aleman MD [address] [place] [address] PCP - General Internal Medicine 06/12/20 Rodrick Carrillo MD [address] [place] [address] Specialist Cardiovascular Disease 06/23/2109/01 Ken Webb MD [address] [place] [address] [address] [place] [address] Data Integrity Specialist Cardiovascular Disease 09/21/23 documented as of this encounter
--- OUTSIDE RECORDS SUMMARY | 2025-01-22 20:33 | XMS_ITS | Data Portability ---
Author Organization [facility] [address] Address [address] [place] [address] Care Team Providers Care Crabbing Machine Operator Name Role Phone AKUARICOGRISELDAMARISA Primary Care Provider Assessment No assessment recorded. Plan of Treatment Reminders Order Date Submit Date Provider Last Modified By Organization Details Last Modified Time Details Appointments None recorded. Lab None recorded. Referral None recorded. Procedures None recorded. Surgeries None recorded. Imaging None recorded. Medication Orders ofloxacin 0.3 % eye drops 2022 023 [id number], [address] [facility], [place], [address], 09:29:39 Patient TargetsNo targets recorded. Patient Instructions Encounter Date Encounter Id Patient Instructions Last Modified By Organization Details Last Modified Time 07/09/2022 [id number] Use prescribed antibiotic eye drops or ointment as directed to treat the infection. Apply a warm compress (towel soaked in warm water) to the affected eye 3 to 4 times a day. Do this just before applying medicine to the eye. Use a warm, wet cloth to wipe away crusting of the eyelids in the morning. This is caused by mucus drainage during the night. You may also use saline irrigating solution or artificial tears to rinse away mucus in the eye. Do not put a patch over the eye. Wash your hands before and after touching the infected eye. This is to prevent spreading the infection to the other eye, and to other people. Don't share your towels or washcloths with others. You may use acetaminophen or ibuprofen to control pain, unless another medicine was prescribed. Talk with your healthcare provider before using these medicines if you have chronic liver or kidney disease. Also talk with your provider if you have ever had a stomach ulcer or digestive bleeding. Don't wear contact lenses until your eyes have healed and all symptoms are gone. Follow-up care Follow up with your healthcare provider, or as advised. When to seek medical advice Call your healthcare provider right away if any of these occur: Worsening vision Increasing pain in the eye Increasing swelling or redness of the eyelid Redness spreading around the eye [email or web address] Not available 07/09/2022 09:18:11 Reason for Referral None Reported. Problems Name Problem SNOMED Code Status Onset Date Resolution Date Notes Provider Name and Address Organization Details Recorded Time Hypothyroidism 81017330 Active 2022 LEXI PAK null, PA - [facility] 3 08:37:31 Eczema 64513530 Active 2022 LEXI PAK null, PA - [facility] 3 08:37:42 Hypertensive disorder 21820605 Active 2022 LEXI PAK null, PA - [facility] 3 08:37:49 Psoriasis of scalp 187297693 Active 2022 LEXI SANCHEZICA null, PA - [facility] 3 08:37:59 Problem Notes None recorded. Procedures Surgical History Date Name Laterality Status Provider Name and Address Organization Details Recorded Time cholecystectomy completed LEXI PAK PA - [facility] 07/09/2022 08:39:18 Imaging Results None recorded. Procedure Notes None recorded. Medical Equipment None Reported. Allergies Allergen ID Allergen Name Allergen Category Reaction Reaction Severity Criticality Documentation Date Start Date Code Code System Note Provider Name and Address Organization Details Recorded Time 696476 Product containin g penicilli n (product) medicatio n anaphylax is Not available Not available 07/09/2022 51689 8001 SNOMED LEXI SANCHEZAUGUSTO null, PA - [facility] 3 08:35:29 773201 Substance with sulfonami de structure and antibacte rial mechanism of action (substanc e) medicatio n hives Not available Not available 07/09/2022 79012 8003 SNOMED LEXI SANCHEZAUGUSTO null, PA - [facility] 3 08:35:38 119402 amlodipin e medicatio n cough Not available Not available 07/09/2022 15115 RxNorm JUDIE Archuleta - [facility] 3 08:35:49 Medications Name Sig Start Date Stop Date Status Note LastModified by Organization Details LastModified Time ofloxacin 0.3 % eye drops INSTILL 1 DROP INTO AFFECTED EYE(S) BY OPHTHALMI C ROUTE 4 TIMES PER DAYx 7 days. 2022 active Not Available Not Available Not Avai lable prednisone 20 mg tablet TAKE 3 TABS BY MOUTH X3 DAYS THEN 2 TABS X3 DAYS THEN 1 TAB X 3 DAYS 07/09 completed Not Available Not Available Not Available pimecrolimu s 1 % topical cream APPLY TO RASH TWICE A DAY active Not Available Not Available No t Available nifedipine ER 30 mg tablet,exte nded release active Not Available Not Available Not Available triamcinolo ne acetonide 0.1 % topical cream APPLY TO AFFECTED AREA TWICE A DAY FOR 2 WEEKS active Not Available Not Available No t Available Synthroid 25 mcg tablet TAKE 1 TABLET BY MOUTH DAILY. TAKE 1 TABLET ONLY 4 DAYS WEEKLY active Not Available Not Available No t Available hydrochloro thiazide 25 mg tablet TAKE 0.5 TABLETS BY MOUTH DAILY FOR 180 DAYS. active Not Available Not Available No t Available metoprolol succinate ER 25 mg tablet,exte nded release 24 hr active Not Available Not Available Not Available scopolamine 1 mg over 3 days transdermal patch PLEASE SEE ATTACHED FOR DETAILED DIRECTION S active Not Available Not Available No t Available albuterol sulfate HFA 90 mcg/actuati on aerosol inhaler INHALE 2 PUFFS INTO THE LUNGS 4 TIMES DAILY NEEDED FOR COUGH OR WHEEZING. active Not Available Not Available No t Available losartan 100 mg tablet active Not Available Not Available Not Available betamethaso ne dipropionat e 0.05 % lotion APPLY TO SCALP 2-3 X WEEKLY 07/09 completed Not Available Not Available Not Available clobetasol 0.05 % shampoo USE 3X/WK DIRECTED - APPLY TO DRY SCALP AND WASH OFF AFTER 10-15 MINUTES active Not Available Not Available No t Available Flowflex COVID-19 Antigen Home Test kit active Not Available Not Available Not Available Vitals Date Recorded Body height Body mass index (BMI) Body weight Body temperature Oxygen saturation Oxygen saturation in Arterial blood by Pulse oximetry Heart rate Respiratory rate Systolic And Diastolic Provider Name and Address Organization Details Last Updated DateTime 3 161.93 cm 39.4 kg/m2 502441. 06 g 97 [degF] 98 % 98 % 75 /min 16 /min 121/83 mm[Hg] LEXI PAK PA - [facility] 3 08:41:14 Social History Question Answer Notes LastModified by Organizat ion Details LastModified Time Tobacco Smoking Status Never Smoker LEXI PAK null, PA - [facility] 07/09/2022 08:39:03 Have You Recently Traveled Abroad? No [email or web address] Information not available 07/09/2022 Sex: Unknown Functional Status Question Answer Note LastModified by Organizat ion Details LastModified Time Do you use any illicit or recreational drugs? No Information not available 07/09/2022 Do you or have you ever used any other forms of tobacco or nicotine? No [email or web address] Information not available 07/09/2022 What is your level of alcohol consumption? Occasional [email or web address] Information not available 07/09/2022 Mental Status None recorded. Family History Relationship Description Onset Age of this Age Resolved Age Notes LastModified by Organization Details LastModified Time Unspecified Relation Hypothyroidi sm [email or web address] Not available 2022 08:38:22 Unspecified Relation Hypertensive disorder [email or web address] Not available 2022 08:38:31 Unspecified Relation Diabetes mellitus [email or web address] Not available 2022 08:38:38 Medical History No medical history recorded. Gynecological History Statement/Question Response Date of LMP Obstetrics History GPAL:G 0 P 0 0 0 0 Past Encounters Encounter ID Performer Location Encounter Start Date Encounter Closed Date Diagnosis/Indication Diagnosis SNOMED-CT Code Diagnosis ICD10 Code Diagnosis IMO Codes Diagnosis Note [id number] [address] [place] [address] 05/10/2021 17:00:02 05/10/2021 18:36:13 [id number] [address] [place] [address] 04/29/2021 17:26:44 04/29/2021 18:59:31 [id number] Major Reed NP [address] [place] [address] 07/09/2022 08:13:02 07/09/2022 09:30:54 Acute conjunctivitis of left eye 3328362671 70656 H10.32 Health Concerns Section Related Observation LastModified by Organization Detai ls LastModified Time None Recorded Concern Status LastModified by Organization Details LastModified Time None Recorded Advance Directives Directive None Recorded Payers Insurance Date Sequence Insurance Name Policy Number Policy Turner Covered Member ID Turner Member ID Guarantor Name 07/09/2022 1 [facility] [id number] 1 Cornelia Zuniga Palencia [id number] Cornelia Palencia Notes Date Note Type Note Provider Name and Address Organization Details Recorded Time 07/09/2022 text/html Eye problemsRepo rted by PatientHPIFor eye symptoms, patient reportssensitivity to light,redness, andwatery. For location, patient reportsleft. For severity, patient reportsmild. For onset/timing, patient [id number]. For modifying factors, patient reportsnothing gives relief. For grayson aggravating factors, patient reportsbright light makes it worse. For grayson alleviating factors, patient reportsnothing helps. Major Reed NP [address] [place], [address], [place] - [facility] 07/09/2022 09:29:54 OBGyn Episode No OBEpisode recorded.
--- OUTSIDE RECORDS SUMMARY | 2025-01-22 20:33 | XMS_ITS | Encounter Summary ---
Author Organization [facility] Address [address] [place] [address] Care Team Providers Care Asbestos Cloth Inspector Name Role Phone Chico Aleman MD Primary Care Provider [phone] Rodrick Carrillo MD Unavailable Unavailable Ken Webb MD Unavailable Encounter Details Date Type Department Care Team Description 06/12/2020 Pt. Non Urgent Medical Question Adult Urgent Care - [address] [address] Rafael Hayes MD Social History Tobacco Use Types Packs/Day [...] encounter Miscellaneous Notes * Telephone Encounter - Margie Prakash - 06/12/2020 12:02 PM ESTFrom: Cornelia Palencia To: Rafael Hayes MD Sent: 06/12/2020 12:01 PM EST Subject: Medication I called yesterday and missed the call back because I was working and received the message late. I had asked if my dosage for my thyroid medication was going to change based on my last blood work results. They were slightly higher than the last time I had themtested. documented in this encounter Plan of Treatment Not on file documented as of this encounter Visit Diagnoses Not on filedocumented in this encounter Care Teams Asbestos Cloth Inspector Relationship Specialty Start Date End Date Chico Aleman MD [address] [place] [address] PCP - General Internal Medicine 06/12/20 Rodrick Carrillo MD [address] [place] [address] Specialist Cardiovascular Disease 06/23/2109/01 Ken Webb MD [address] [place] [address] [address] [place] [address] Field Care Advocate Cardiovascular Disease 09/21/23 documented as of this encounter
--- OUTSIDE RECORDS SUMMARY | 2025-01-22 20:33 | XMS_ITS | Encounter Summary ---
Author Organization [facility] Address [address] [place] [address] Care Team Providers Care Assurance Sourcing Manager Name Role Phone Chico Aleman MD Primary Care Provider [phone] Rodrick Carrillo MD Unavailable Unavailable Ken Webb MD Unavailable [phone] Encounter Details Date Type Department Care Team Description 08/04/2021 SCAN Medical Records [address] [place] [address] Abstract, Provider Social History Tobacco Use Types [...] suspected to have Coronavirus/COVID-19? No / Unsure 07/19/2021 8:32 AM EDT documented as of this encounter Plan of Treatment Not on file documented as of this encounter Visit Diagnoses Not on filedocumented in this encounter Care Teams Assurance Sourcing Manager Relationship Specialty Start Date End Date Chico Aleman MD [address] [place] [address] PCP - General Internal Medicine 06/12/20 Rodrick Carrillo MD [address] [place] [address] [place] [address] Specialist Cardiovascular Disease 06/23/2109/01 Ken Webb MD [address] [place] [address] [address] [place] [address] Aluminum Sheet Cutter Cardiovascular Disease 09/21/23 documented as of this encounter
--- OUTSIDE RECORDS SUMMARY | 2025-01-22 20:34 | XMS_ITS | Encounter Summary ---
Author Organization [facility] Address [address] [place] [address] Care Team Providers Care Court Abstractor Name Role Phone Dg Espinoza MD Primary Care Provider Unavail able Chico Aleman MD Primary Care Provider [phone] Rodrick Carrillo MD Unavailable Unavailable Ken Webb MD Unavailable [phone] Reason for Visit * Reason Onset Date Comments immunizations 05/23/2017 Encounter Details Date Type Department Care Team Description 05/23/2017 Telephone Adult Medicine [address] [address] Dg Espinoza MD immunizations Social History Tobacco Use Types Packs/Day Years Used Date Smoking Tobacco: Every Day Cigarettes 0.1 24 Started: 04/03/1992 Smokeless Tobacco: Never Comments:3-4 cigs a day Alcohol Use Standard Drinks/Week Comments Yes 0 (1 standard drink = 0.6 oz pur e alcohol) socially Sex Assigned at Date Recorded Not on file Job Start Date Occupation Industry Not on file Not on file Not on file documented as of this encounter Miscellaneous Notes * Telephone Encounter - Loreta Weaver M.A. - 05/23/2017 10:49 AM EST Spoke with pt, she needs a varicella titer to prove her immunity (going to grad school) states she does not need any other titers (has her imms records from childhood) --order is pended Last office visit 02/17/18 -pt will come in later this week for it * Telephone Encounter - Yessica Butts - 05/23/2017 9:46 AM EST Caller requesting call back from provider: Is the caller the patient? YES Reason for call back: patient has questions about tithers and recent immunizations Caller offered to speak with the nurse for assistance: YES Response: Patient offered to speak with nurse for assistance and patient agreed. Message forwarded to nurse. documented in this encounter Plan of Treatment Not on file documented as of this encounter Results * VARICELLA-ZOSTER ANTIBODY SCREENING (05/24/2017 1:53 PM EST) VARICELLA ANTIBODY IGG POSITIVE POSITIVE 05/25/2017 12:29 PM EST [facility] 05/24/2017 1:53 PM EST 05/24/2017 1:53 PM EST Karla Levy PA-C LAB Performing Organization Address City/State/[facility] Co de Phone Number [place] [address] [facility] documented in this encounter Visit Diagnoses Diagnosis Antibody response examination Screening for endocrine, nutritional, metabolic and immunity disorder Screening for other and unspecified endocrine, nutritional, metabolic, and immunity disorders documented in this encounter Care Teams Court Abstractor Relationship Specialty Start Date End Date Dg Espinoza MD PCP - General Internal Medicine 02/24/16 06/11/20 Chico Aleman MD [address] [place] [address] PCP - General Internal Medicine 06/12/20 Rodrick Carrillo MD [address] [place] [address] Specialist Cardiovascular Disease 06/23/2109/01 Ken Webb MD [address] [place] [address] [address] [place] [address] Barrel Roller Operator Cardiovascular Disease 09/21/23 documented as of this encounter
--- OUTSIDE RECORDS SUMMARY | 2025-01-22 20:34 | XMS_ITS | Encounter Summary ---
Author Organization [facility] Address [address] [place] [address] Care Team Providers Care Slipman Name Role Phone Chico Aleman MD Primary Care Provider [phone] Rodrick Carrillo MD Unavailable Unavailable Ken Webb MD Unavailable [phone] Reason for Visit * Reason Comments E-prescribe Rx Request Encounter Details Date Type Department Care Team Description 08/03/2022 Refill Adult Medicine B - [address] [id number] Chico Aleman MD [address] [place] [address] [id number] E-prescribe Rx Request Social History Tobacco Use Types Packs/Day Years [...] suspected to have Coronavirus/COVID-19? No / Unsure 07/07/2022 3:14 PM EDT documented as of this encounter Miscellaneous Notes * Telephone Encounter - Odilia Mcqueen - 08/08/2022 8:26 AM EDT Faxed to pharmacy. [facility] * Telephone Encounter - Chico Aleman MD - 08/05/2022 5:52 PM EDT That is fine * Telephone Encounter - Gris Bentley C.M.A. - 08/05/2022 11:43 AM EDT Pt has appt on november with you, please advise pt needs to reschedule that appt as she only prefers to see you. thanks * Telephone Encounter - Sherrie Boland - 08/05/2022 11:10 AM EDT Pt calling because she only wants Dr Hussein and doesn't want anyone else so wants to know what to do * Telephone Encounter - Gris Bentley C.M.A. - 08/05/2022 8:30 AM EDT My chart message sent to patient today. BSR - please schedule appointment for patient for med review, when pt calls back. Thank you. * Telephone Encounter - Gris Bentley C.M.A. - 08/04/2022 1:10 PM EDT My chart message sent to patient today as pt was unable to reach via phone. BSR - please schedule appointment for patient for med review, when pt calls back. Thank you. * Telephone Encounter - Chico Aleman MD - 08/04/2022 1:01 PM EDT Please asked the patient to do her lab work to recheck thyroid levels also she is due for her repeat 6-month follow-up appointment. She needs an appointment. * Telephone Encounter - Lili Bhardwaj M.A. - 08/04/2022 8:49 AM EDT Last office visit 02/11/22 Lab Results Component Value Date NA 141 02/14/2022 K 4.4 02/14/2022 CO2 28 02/14/2022 CL 109 02/14/2022 BUN 12 02/14/2022 CREAT 0.79 02/14/2022 GLU 115 02/14/2022 CA 9.4 02/14/2022 GFR 96 02/14/2022 Lab Results Component Value Date TSH 4.26 02/14/2022 * Telephone Encounter - Jasmyn Frank - 08/04/2022 8:38 AM EDT Patient would like script to be: E-PRESCRIBED/FAXED TO PHARMACY ?? WHEN WAS THE PATIENT'S LAST APPOINTMENT IN ADULT MEDICINE? 02/11/22 ?? WHEN WAS THE LAST TIME THE PATIENT SAW THEIR PCP? Same as above ?? Does patient have an upcoming appointment? sent my chart ?? (THE MEDICATION REQUESTED IS ON THE MED LIST ABOVE) All of the medications requested were on the CURRENT MEDS list ?? Did you check the Pharmacy information above?: NO ?? Patient wants: 30 -day supply ?? Is this a mail order prescription request ? NO ?? If the refill is from a FAXED refill request what is the RX # listed on the fax? N/A ?? Patients current insurance carrier is: Payor: [employer] / Plan: HMO $20 TAMIA 1500 / Product Type: HMO [id number] ?? documented in this encounter Plan of Treatment Not on file documented as of this encounter Visit Diagnoses Diagnosis Essential hypertension Unspecified essential hypertension documented in this encounter Care Teams Slipman Relationship Specialty Start Date End Date Chico Aleman MD [address] [place] [id number] PCP - General Internal Medicine 06/12/20 Rodrick Carrillo MD [address] [place] [id number] Specialist Cardiovascular Disease 06/23/2109/01 Ken Webb MD [address] [place] [address] [address] [place] [address] [employer] Web [employer] Developer Cardiovascular Disease 09/21/23 documented as of this encounter
[2025-01-23 11:18] LABS: Chlamydia pneumoniae PCR Not Detected (Not Detect.); Coronavirus 229E PCR Not Detected (Not Detect.); Coronavirus HKU1 PCR Not Detected (Not Detect.); Coronavirus NL63 PCR Not Detected (Not Detect.); Coronavirus OC43 PCR Not Detected (Not Detect.); RSV PCR Not Detected (Not Detect.); Rhino/Enterovirus PCR Detected (Not Detect.); SARS-CoV-2 PCR Not Detected (Not Detect.)
[2025-01-23 12:20] LABS: Influenza A H1 PCR Not Detected (Not Detect.); Influenza A H1-2009 PCR Not Detected (Not Detect.); Influenza A H3 PCR Not Detected (Not Detect.)
== END 2025-01-22 13:01 | disposition home or self-care (01) ==
LOC: HO.LAB 13:00
PROVIDERS: Family Medicine; PCP Internal Medicine
DX: J06.9 Acute upper respiratory infection, unspecified (principal); Z87.891 Personal history of nicotine dependence
CPT/HCPCS: 87633

== ENCOUNTER 2025-01-22 13:00 | Outpatient (AMB) | payer OTHER, SELFPAY ==
--- NOTE | 2025-01-22 13:50 | AM.OFFWIN_ITS ---
Intake Vital Signs 01/22/25 13:53 Height 5 ft 4 in Weight 216 lb BMI 37.1 BP 128/90 H Blood Pressure Location Lt brachial Position Sitting Pulse 73 Pulse Source Pulse Oximeter Temp 98.1 F Temp Source Oral Pulse Oximetry (%) 98 Oxygen Delivery Method Room Air Intake Visit Reasons: EP-sinus congestion, headaches, [id number] Intake Note: pt presnts sinus congestion and facial pain, headaches body chills for 2 days Patient Tobacco Use Status: Former Tobacco user Allergies Penicillins (PENICILLINS) Allergy (Severe, Verified 01/22/25 13:51) Anaphylaxis Sulfa (Sulfonamide Antibiotics) Allergy (Intermediate, Verified 01/22/25 13:51) Rash Medication List - Last Reconciled 01/22/25 by Vee Artis MD cetirizine 10 mg PO DAILY escitalopram oxalate 10 mg PO DAILY hydrochlorothiazide 12.5 mg PO DAILY levothyroxine (Synthroid) 50 mcg PO .QOD losartan 100 mg PO DAILY metformin 500 mg PO ONCE semaglutide (weight loss) (Wegovy) 0.5 mg subcut QWEEK Do you need a note to return to daycare/school/sports/work: Yes HPI HPI Comments History of Present Illness Details Patient was informed and verbally consented to the use of an ambient scribe for clinic note documentation during the visit. History of Present Illness The patient is a 44-year-old female presenting with upper respiratory symptoms. Upper respiratory infection: - The patient reports experiencing nasal congestion, headache, and facial pressure/pain - Symptoms began 2 days ago, associated with periodic chills and hot sensations without recorded fever. - The patient denies current runny nose but experienced it initially prior to the congestion setting in, describing it as watery. - Recent exposure to ill family members is noted, including a grandson with a fever. - The patient reports ongoing issues wit h nasal congestion and sinus-related discomfort, exacerbated by allergies throughout her life. - Presents with tender lymph nodes in th e axillary regions, recently noted alongside current upper respiratory symptoms. Patient states she has has similar symptoms in the past with infections - Denies any vomiting or diarrhea. Mild nausea due to wegovy - No cough, chest pain, or shortness of breath Review of Systems Constitutional: Negative for fevers. Reports chills chills, fatigue, activity change HENT: Reports rhinorrhea and conestion. Negative for sore throat, ear pain Respiratory: Negative for cough, shortness of breath, chest tightness, wheezing Cardiac: Negative for chest pain, Lymphatic: Reports swollen, tender lymph nodes in axillary region. Gastrointestinal: Negative for abdominal pain, vomiting. Reports nausea Physical Exam General Appearance: Normal appearance, well developed. No acute distress Head: Normocephalic, atraumatic. ENT: External ears and ear canals clear. TMs without erythema or bulging. Oropharynx with slight erythema. No exudates. Cardiac: Regular rate and rhythm. No murmurs noted. Lymphatic: Palpable and tender left axillary lymph nodes noted Pulmonary: No respiratory distress. Speaking in full sentences. Clear to auscultation bilaterally. Musculoskeletal: Moving all extremities spontaneously and against gravity Mental Status: Alert and Oriented x 3 Psychiatric: Normal mood. Normal affect. REPLACED BY [facility] Medical History HTN (hypertension) Hypothyroid Obesity Asthma Surgical History S/P cholecystectomy Social History Alcohol intake: current Alcohol intake frequency: a few times a month Patient Tobacco Use Status: Former Tobacco user Substance Use Type: Marijuana Physical Exam Vital Signs: Last Vital Signs Temp 98.1 F 01/22/25 13:53 Pulse 73 01/22/25 13:53 BP 128/90 H 01/22/25 13:53 Pulse Ox 98 01/22/25 13:53 Oxygen Delivery Method Room Air 01/22/25 13:53 BMI result Body Mass Index 37.1 Assessment & Plan Assessment & Plan (1) Viral upper respiratory illness: Code(s): J06.9 - Acute upper respiratory infection, unspecified Plan - Discussed with the patient that symptoms suggest a viral infection, likely necessitating supportive care. - Conducted a nasal swab for a viral respiratory panel - The patient advised to maintain hydration, use warm compresses on the face, and continue using a neti pot to manage nasal congestion and sinus pressure. Flonase recommended and discussed that medication may take a few days to provide symptoms relief. - Suggested use of [id number] medication like Tylenol for headache relief. - Considered OTC medications such as Moira and Mucinex as adjunct therapy, particularly in presence of mucosal drainage - Explained that axillary lymphadenopathy is possibly reactive to underlying viral process. - Advised follow up if worsening symptoms such as sinus pain, fevers, mucopurulent drainage Orders: Orders Resp Pathogen Panel - [facility] [place] Today J06.9 - Acute upper respiratory infection, unspecified Coding Level of Care Code Est Pt Level 3 (02365) Diagnoses Viral upper respiratory illness J06.9
[2025-01-22 13:53] VITALS: BP 128/90; PULSE 73; TEMP 36.7; O2SAT 98; BMI 37.1
--- OUTSIDE RECORDS SUMMARY | 2025-01-22 18:11 | XMS_ITS | Clinical Summary ---
Author Organization [address] [place] [address] Address [facility] [place] [address] Phone Care Team Providers Care Wire Drawing Machine Tender Name Role Phone Chico Aleman MD Primary Care Provider Un available Allergies Active Allergy Reactions Criticality Noted Date Comments Amlodipine 01/05/2021 Dry cough, rapid heartrate, nausea and diziness Other 10/06/2016 Seasonal allergies Penicillins Anaphylaxis High 08/15/2014 Sulfa (Sulfonamide Antibiotics) 08/15/2014 Other Reaction(s): Hives/Urticaria Medications Skyrizi 150 mg/mL pen injector 03/13/2024 Active albuterol HFA (PROAIR HFA ; PROVENTIL HFA ; VENTOLIN HFA) 90 mcg/actuation inhaler Inhale 2 Puffs into the lungs 4 times daily as needed for Cough or Wheezing. 12/21/2023 Active levothyroxine (SYNTHROID, LEVOTHROID) 25 mcg tabletIndicatio ns:Barbara's disease Take 2 tablets (50 mcg total) by mouth every other day. 90 tablet 2 05/20/2024 Active losartan (COZAAR) 100 mg tablet TAKE 1 TABLET BY MOUTH 1 TIME EACH DAY. 90 tablet 1 08/19/2024 Active hydroCHLOROthia zide (MICROZIDE) 12.5 mg capsule TAKE 1 CAPSULE BY MOUTH DAILY FOR 180 DAYS. 90 capsule 1 08/19/2024 Active cetirizine (ZyrTEC) 10 mg tablet TAKE 1 TABLET BY MOUTH 1 TIME EACH DAY. 90 tablet 1 09/09/2024 Active escitalopram (LEXAPRO) 10 mg tablet TAKE 1 TABLET BY MOUTH 1 TIME EACH DAY. 90 tablet 1 10/08/2024 Active metFORMIN (GLUCOPHAGE) 500 mg tabletIndicatio ns:Type 2 diabetes mellitus without complication, without long-term current use of insulin ([facility] V24, [facility] V28) Take 1 tablet (500 mg total) by mouth 1 (one) time each day with breakfast. 12/12/2024 Active semaglutide (Wegovy) 1 mg/0.5 mL injection pen Inject 1 mg under the skin every 7 (seven) days. 2 mL 01/22/2025 02/22/20 Active semaglutide (Wegovy) 0.5 mg/0.5 mL injection pen Inject 0.5 mg under the skin every 7 (seven) days for 28 days. 2 mL 12/18/2024 01/16/20 Active Problems Problem Noted Date Diagnosed Date Type 2 diabetes mellitus wit h hyperglycemia, without long-term current use of insulin ([facility] V24, [facility] V28) 07/19/2024 Assessment & Plan (07/19/2024 12:14 PM EDT): Diabetic diet discussed. She has an appointment with the bush regenerator already. Continue metformin. Orders: Lipid panel with reflex to direct LDL; Future Microalbumin creatinine urine ratio; Future Multiple thyroid nodules 04/29/2024 Assessment & Plan (12/12/2024 4:19 PM EDT): She followed up with endocrinology and advised to follow-up with them to monitor her thyroid nodules. Assessment & Plan (07/19/2024 12:14 PM EDT): Thyroid ultrasound has been ordered to follow-up on thyroid nodules. Thyroid levels are normal. Orders: US Head Neck Soft Tissue; Future Right carpal tunnel syndrome 07/26/2023 Abnormal mammogram 01/25/2023 Overview (04/29/2024): 10/25/22 R breast - 3-4 mm cyst vs solid mass; repeat mammo + US in 6 months (ordered/managed by Dr. 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 Will reevaluate again in 6 weeks to see if her depression is improved. Encouraged to speak to her therapist as well. Hypertension 09/17/2014 Overview (04/29/2024): Last Assessment & Plan: Patient's blood pressure is now under better control off of some of her medical therapy. Her nifedipine is to be stopped in the next few weeks. At this point there is no need for any further cardiac follow-up her primary care team can continue to manage her blood pressure and now on the 2 remaining meds that she is on. The other 2 meds were discontinued without a significant rise in blood pressure. The changes may be secondary to stabilization of her thyroid Assessment & Plan (12/12/2024 4:19 PM EDT): Blood pressure okay. She will follow sodium diet. Continue hydrochlorothiazide, losartan. Assessment & Plan (07/19/2024 12:14 PM EDT): Follow low-sodium diet. Continue current regimen of hydrochlorothiazide, losartan. Orders: CBC and differential; Future Metabolic syndrome 09/17/2014 Acanthosis nigricans 08/15/2014 Resolved Problems Problem Noted Date Diagnosed Date Resolved Date Prediabetes 11/24/2022 06/27/2024 PCOS (polycystic ovarian syndrome) 09/17/2014 06/27/2024 Asthma 08/15/2014 06/27/2024 Encounters Date Type Department Care Team Description 01/21/2025 Telephone Bariatric Surgery - [address] [place] [address] Bill Azul MD 12/18/2024 Telephone Bariatric Surgery - [place] [address] [phone] Bill Azul MD 12/16/2024 7:16 AM EDT - 12/16/2024 11:59 PM EDT Hospital Encounter [facility] Xray [address] [place] [phone] Oropharyngeal dysphagia Discharge Disposition: Home or Self Care 12/12/2024 3:30 PM EDT Office Visit Internal Medicine - [address] [phone] Chico Aleman MD Dysphagia, unspecified type (Primary Dx); Type 2 diabetes mellitus without complication, without long-term current use of insulin ([facility]/H[facility] V24, CMS/HCC V28); Primary hypertension; Multiple thyroid nodules; Immunization due 11/05/2024 Telephone Bariatric Surgery [facility] [address] [phone] Bill Azul MD 11/01/2024 8:00 AM EDT Office Visit Gastroenterology - [place] 175 [facility] 175 [facility] [address] [place] [phone] Maru Blood NP Oropharyngeal dysphagia (Primary Dx); Heartburn 10/24/2024 1:30 PM EDT Consult Bariatric Surgery [facility] [address] [phone] Bill Azul MD Class 2 obesity due to excess calories with body mass index (BMI) of 35.0 to 35.9 in adult, unspecified whether serious comorbidity present (Primary Dx) from Last 3 Months Immunizations Immunization Administration Dates Next Due Hepatitis B ([id number] , Recombivax HB-Adult) 19yo and older 01/30/2006 Influenza Quadravalent, MDCK , 0.5ml, preservative free (Flucelvax) 6mo and older 12/27/2022,01/05/2021 Influenza Quadrivalent, 0.5m l, preservative free (Fluarix; FluLaval; Fluzone) ages 6mo and older (Afluria) 3yo and older 02/11/2022,02/26/2020,04/28/2019 Influenza trivalent, 0.5mL, preservative free (Fluarix; FluLaval; Fluzone) ages 6mo and older (Afluria) 3 years and older 12/21/2023 Influenza trivalent, MDCK, 0 .5mL, preservative free (Flucelvax) 6mo and older 12/12/2024 Pfizer SARS-CoV-2 COVID-19, mRNA, LNP-S, preservative free 02/02/2022 Pneumococcal conjugate 13 va lent (Prevnar 13, PCV13) 2mo and older 10/06/2016 Td Tetanus diptheria (Tdvax) 7yo and older 07/19 Tdap Tetanus diptheria acell ular pertussis (Boostrix; Adacel) 7yo and older 11/11/2009 Surgical History Surgery Date Site/Laterality Comments CHOLECYSTECTOMY May 2002 PROCEDURE: LAPAROSCOPY, CHOLECYSTECTOMY Medical History Medical History Date Comments Elevated blood pressure DX:[place] blood pressure Obesity DX:Obesity Asthma 08/15/2014 DX:Asthma Depression 09/17/2014 DX:Depression Allergic rhinitis 09/17/2014 DX:Allergic rh initis Metabolic syndrome 09/17/2014 DX:Metabolic syndrome Hypertension 09/17/2014 DX:Hypertension PCOS (polycystic ovarian syndrome) 09/17/2014 DX:PCOS (polycystic ovarian syndrome) Multiple thyroid nodules DX:Mult iple thyroid nodules 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 Vinnie Terry) Family History Medical History Relation Name Comments Hyperthyroidism Father Other: goiter Mother Breast cancer Mother's side great aunt (i n 60s, one breast) Coronary artery disease Paternal Grandfather Relation Name Status Comments Father Alive Mother Alive Mother's side Paternal Grandfather Son 1 Ravi Alive Son 2 Emanual Alive Social History Tobacco Use Types Packs/Day Years Used Date Smoking Tobacco: Former Cigarettes 0.1 26 0 04/03/1992 - 03/22/2018 Smokeless Tobacco: Never Tobacco Cessation:Counseling Given: Not Answered Alcohol Use Standard Drinks/Week Comments Yes 0 (1 standard drink = 0.6 oz pur e alcohol) Housing Instability Answer Date Recorde d Are you worried that in the next 2 months you may not have stable housing? No 06/26/2024 Food Access & Nutrition Answer Date Rec orded Do you have access to a vari ety of food including fruits and vegetables? Yes 06/26/2024 Access to Healthcare Answer Date Record ed Within the last 3 months, ho w many times did you visit the emergency department for your medical care? 0 06/26/2024 Health Literacy Answer Date Recorded How often do you need to hav e someone help you when you read instructions, pamphlets, or other written material from your doctor or pharmacy? Never 06/26/2024 Caregiver: How often do you need to have someone help you when you read instructions, pamphlets, or other written material from your doctor or pharmacy? Not on file 06/26/2024 Financial Risk Answer Date Recorded How hard is it for you to pa y for the very basics like food, housing, medical care, and air conditioning / heating? Not very hard 06/26/2024 Transportation Answer Date Recorded Has the lack of transportati on kept you from meetings, work, or from getting things needed for daily living? No Has the lack of transportati on kept you from medical appointments or from getting medications? No 06/26/2024 Social Isolation Answer Date Recorded How often do you feel lonely or isolated from th ose around you? Rarely 06/26/2024 Food Risk Answer Date Recorded Within the past 12 months we worried whether our food would run out before we got money to buy more. Never true 06/26/2024 Within the past 12 months th e food we bought just didn't last and we didn't have money to get more. Never true 06/26/2024 Dependent Care Answer Date Recorded Do you need help finding or paying for care for your loved ones. For example, child care attendant or elderly care for an older adult? No 06/26/2024 Education Answer Date Recorded Do you think completing more education or training, like finishing a GED, going to college, or learning a trade, would be helpful for you? No 06/26/2024 Employment and Income Answer Date Recor ded During the last four weeks, have you been actively looking for work? No 06/26/2024 Living Situation Answer Date Recorded What is your living situation? Unrecognized valu e 06/26/2024 Comments No Sex and Gender Information Value Date Recorded Sex Assigned at Female 05/26/2024 7:19 AM EST Legal Sex Female 5:00 AM EST Gender Identity Female 05/26/2024 7:19 AM EST Sexual Orientation Not on file Obstetrics History Last Filed Vital Signs Vital Sign Reading Time Taken Comments Blood Pressure 120/76 12/12/2024 3:25 PM EDT Pulse 70 12/12/2024 3:25 PM EDT Temperature 36.6 C (97.8 F) 10/24/2024 1:31 PM EDT Respiratory Rate 16 08/07/2024 3:14 PM EDT Oxygen Saturation 98% 11/01/2024 8:02 AM EDT Inhaled Oxygen Concentration - - Weight 98.1 kg (216 lb 3.2 oz) 12/12/2024 3:25 P M EDT Height 162.6 cm (5' 4 ) 12/12/2024 3:25 PM EDT Body Mass Index 37.11 12/12/2024 3:25 PM EDT Plan of Treatment Upcoming Encounters Date Type Department Care Team (Late st Contact Info) Description 01/28/2025 3:30 PM EDT Nutrition Bariatric Surgery - [place] [address] [phone] Margie Barahona, RD [address] [phone] 04/15/2025 8:00 AM EST Office Visit Bariatric Surgery - [place] [address] [phone] Bill Azul MD [address] [place] [phone] Health Maintenance Due Date Last Done Comments Diabetes: Annual Foot Exam 1990 Hepatitis B Vaccines (2 of 3 - 19+ 3-dose series) 02/27/2006 01/30/2006 HPV Vaccines (1 - 3-dose SCDM series) 06/22/2007 Pneumococcal Vaccine: Pediatrics (0 to 5 Years) and At-Risk Patients (6 to 49 Years) (2 of 2 - PPSV23, PCV20, or PCV21) 12/01/2016 10/06/2016 Cervical Cancer Screening: Pap Smear 08/24/2021 08/24/2018, 08/24/2018, 08/24/2018 HIV Screening 03/06/2022 Hepatitis C Screening 03/06/2022 COVID-19 Vaccine ( season) 2024 03/05/2023, 02/11/2022, 02/02/2022, Additional history exists Diabetes: Blood Sugar Control Test (HGBA1C) 04/20/2025 10/18/2024, 06/12/2024, 07/14/2023 Diabetes: Annual GFR (Glomerular Filtration Rate) 05/17/2025 05/17/2024, 07/14/2023 Hypertension/CHF/CAD Annual BMP Blood Test 05/17/2025 05/17/2024, 07/14/2023 Social Influencers of Health Screening 06/26/2025 06/26/2024 Diabetes: Annual Retina Eye Exam 06/29/2025 06/29/2024 Diabetes: Annual Urine Albumin-Creatinine Ratio (uACR) 07/19/2025 07/19/2024 Breast Cancer Screening 11/12/2026 11/12/2024, 06/10 Cholesterol Screening (Lipid Panel) 07/19/2029 07/19/2024, 07/14/2023 DTaP,Tdap,and Td Vaccines (3 - Td or Tdap) 07/20/2031 07/19/2021, 11/11/2009 RSV Immunization Adult Patients (1 - 1-dose 75+ series) 06/22/2055 Depression Screening Completed 06/26/2024 Influenza Vaccine Completed 12/12/2024, , 12/27/2022, Additional history exists HIB Vaccines Aged Out No longer eligi ble based on patient's age to complete this topic Hepatitis A Vaccines Aged Out No long er eligible based on patient's age to complete this topic IPV Vaccines Aged Out No longer eligi ble based on patient's age to complete this topic MMR Vaccines Aged Out No longer eligi ble based on patient's age to complete this topic Meningococcal ACWY Vaccine Aged Out N o longer eligible based on patient's age to complete this topic Meningococcal B Vaccine Aged Out No l onger eligible based on patient's age to complete this topic RSV Immunization Patients Under 20 months Aged Out No longer eligible based on patient's age to complete this topic Varicella Vaccines Aged Out No longer eligible based on patient's age to complete this topic Goals Goal Patient Goal Type Associated Problems Recent Progress Patient-Stated? Author Pt LTGs General No Ambrose Ann, PT Note: Pt will transfer kneeling into standing while pushing off RLE into standing without right knee pain - met Pt will report no right knee numbness - not met Pt will be independent with HEP - met Procedures Procedure Name Priority Date/Time Associated Diagnosis Comments XR ESOPHAGRAM Routine 12/16/2024 8:11 AM EDT Oropharyngeal dysphagia EXTERNAL MAMMOGRAM REPORT 11/12/2024 HEMOGLOBIN A1C Routine 10/18/2024 11:04 AM EDT Type 2 diabetes mellitus with hyperglycemia, without long-term current use of insulin ([facility] V24, [facility] V28) MICROALBUMIN CREATININE URINE RATIO Routine 07/19/2024 12:13 PM EDT Type 2 diabetes mellitus with hyperglycemia, without long-term current use of insulin (CMS/HCC V24, CMS/HCC V28) LIPID PANEL WITH REFLEX TO DIRECT LDL Routine 07/19/2024 12:13 PM EDT Type 2 diabetes mellitus with hyperglycemia, without long-term current use of insulin ([facility] V24, CMS/HCC V28) EXTERNAL DIABETIC RETINA EYE EXAM 06/29/2024 COMPREHENSIVE METABOLIC PANEL Routine 05/17/2024 4:13 PM EST Screening for metabolic disorder PAP SMEAR Routine 08/24/2018 from Last 3 Months or Most Recently Relevant to Health Maintenance Results * XR Esophagram (12/16/2024 8:11 AM EDT) Anatomical Region Laterality Modality Head and Neck Radiographic Jaja ging 12/16/2024 9:44 AM EDT Impressions 12/16/2024 9:58 AM EDT Normal double contrast esophagram exam. -------- FINAL REPORT -------- Dictated By: Mary Lou Raines Dictated Date: 12/16/2024 09:44 ET Assigned Physician: Giovanny Nugent Reviewed and Electronically Signed By: Giovanny Nugent Signed Date: 12/16/2024 09:58 ET Workstation ID: [id number] Transcribed By: Self Edit Transcribed Date: 12/16/2024 09:45 ET Resident/PA/SHUTTLE CAR OPERATOR: Mary Lou Raines Narrative 12/16/2024 9:58 AM EDT FINDINGS: Double contrast esophagram performed. COMPARISON: None HISTORY: Patient is a 44-year-old female with history of dysphagia, globus sensation. Certified Personal Finance Counselor radiographs: 1 view chest radiograph demonstrates cardiac and mediastinal contours within normal limits. Lungs are clear bilaterally. Costophrenic angles are sharp. Mild bony degenerative changes are noted of the thoracolumbar spine. 1 view lateral soft tissue neck demonstrates no prevertebral soft tissue masses. Airway is widely patent. Osseous structures are unremarkable with the incidental exception of segmentation anomaly at C2-3. Effervescent crystals were administered orally. Thick and thin barium were administered orally under fluoroscopic control. Pharyngoesophagram: Rapid sequence imaging of the hypopharynx during swallowing demonstrates prompt initiation of swallowing. There is normal soft palate elevation and normal epiglottic motion. There is no laryngeal penetration or santy aspiration. There is no residual in the vallecula nor in the piriform sinuses. Thoracic esophagus: Normal distensibility, motility and mucosal pattern without evidence of ulceration, stricture or mass formation. Hiatal hernia: None Reflux: Unable to elicit 13mm Barium pill: Swallowed without difficulty. Prompt passage of pill from the esophagus into the stomach. Air Kerma: 20.04 mGy Procedure Note Giovanny Nugent MD - 12/16/2024 FINDINGS: Double contrast esophagram performed. COMPARISON: None HISTORY: Patient is a 44-year-old female with history of dysphagia, globussensation. Certified Personal Finance Counselor radiographs: 1 view chest radiograph demonstrates cardiac andmediastinal contours within normal limits. Lungs are clear bilaterally.Costophrenic angles are sharp. Mild bony degenerative changes are noted ofthe thoracolumbar spine. 1 view lateral soft tissue neck demonstrates noprevertebral soft tissue masses. Airway is widely patent. Osseousstructures are unremarkable with the incidental exception of segmentationanomaly at C2-3. Effervescent crystals were administered orally. Thick and thin barium wereadministered orally under fluoroscopic control. Pharyngoesophagram: Rapid sequence imaging of the hypopharynx duringswallowing demonstrates prompt initiation of swallowing. There is normalsoft palate elevation and normal epiglottic motion. There is no laryngealpenetration or santy aspiration. There is no residual in the vallecula norin the piriform sinuses. Thoracic esophagus: Normal distensibility, motility and mucosal patternwithout evidence of ulceration, stricture or mass formation. Hiatal hernia: None Reflux: Unable to elicit 13mm Barium pill: Swallowed without difficulty. Prompt passage of pillfrom the esophagus into the stomach. Air Kerma: 20.04 mGy IMPRESSION: Normal double contrast esophagram exam. -------- FINAL REPORT -------- Dictated By: Mary Lou Raines Dictated Date: 12/16/2024 09:44 ET Assigned Physician: Giovanny Nugent Reviewed and Electronically Signed By: Giovanny Nugent Signed Date: 12/16/2024 09:58 ET Workstation ID: [id number] Transcribed By: Self Edit Transcribed Date: 12/16/2024 09:45 ET Resident/PA/SHUTTLE CAR OPERATOR: Mary Lou Raines Maru Blood SHUTTLE CAR OPERATOR IMG FLUOROSCOPY PROCEDURES Sophia l Result * External Mammogram Report (11/12/2024) Anatomical Region Laterality Modality Mammography Provider [facility] IMG BI PROCEDURES Final Result * Hemoglobin A1c (10/18/2024 11:04 AM EDT) [facility] Hemoglobin A1C 5.9 <6.5 % LAB CHEMISTRY METHOD 10/18/2024 1:44 PM EDT [facility] Mean Bld Glu Estim. 123 mg/dL LAB CHEMISTRY METHOD 10/18/2024 1:44 PM EDT [facility] Blood Venous blood specimen / Unknown Venipuncture / Unknown 10/18/2024 11:04 AM EDT 10/18/2024 11:04 AM EDT us Chico Aleman MD LAB BLOOD ORDERABLES Sophia liang Result [facility] [address] [place] [address], [place] [phone] * (ABNORMAL) Lipid panel with reflex to direct LDL (07/19/2024 12:13 PM EDT) [facility] Cholesterol 171 0 - 200 mg/dL LAB CHEMISTRY METHOD 07/19/2024 5:51 PM EDT [facility] Triglycerides 100 0 - 150 mg/dL LAB CHEMISTRY METHOD 07/19/2024 5:51 PM T [facility] HDL 50 >=40 mg/dL LAB CHEMISTRY METHOD 07/19/2024 5:51 PM EDT [facility] LDL Calculated 101(H) 0 - 100 mg/dL LAB CHEMISTRY METHOD 07/19/2024 5:51 PM T [facility] VLDL Cholesterol Rajesh 20 mg/dL LAB CHEMISTRY METHOD 07/19/2024 5:51 PM EDT [facility] Non HDL Chol. (LDL+VLDL) 121 <145 mg/dL LAB CHEMISTRY METHOD 07/19/2024 5:51 PM EDT [facility] Chol/HDL Ratio 3.4 0.0 - 4.4 LAB CHEMISTRY METHOD 07/19/2024 5:51 PM EDT [facility] Blood Venous blood specimen / Unknown Venipuncture / Unknown 07/19/2024 12:13 PM EDT 07/19/2024 12:13 PM EDT Chico Aleman MD LAB BLOOD ORDERABLES Sophia l Result Performing Organization Address [facility]/ZIP Co de Phone Number [facility] [address] [place] [address], [place] [phone] * Microalbumin creatinine urine ratio (07/19/2024 12:13 PM EDT) Creatinine, Urine 247.0 mg/dL LAB CHEMISTRY METHOD 07/19/2024 4:46 PM EDT [facility] Microalb, Ur 25.3 0.0 - 29.0 mg/L LAB CHEMISTRY METHOD 07/19/2024 4:46 PM EDT [facility] Microalb/Creat Ratio 10 <30 mg/g creat LAB CHEMISTRY METHOD 07/19/2024 4:46 PM EDT [facility] Urine Urine specimen obtained by clean catch procedure / Unknown Non-blood Collection / Unknown 07/19/2024 12:13 PM EDT 07/19/2024 12:13 PM EDT Chico Aleman MD LAB URINE ORDERABLES Sophia l Result Performing Organization Address City/[facility]/ZIP Co de Phone Number [facility] [address] [place] [address], [place] [phone] * External Diabetic Retina Eye Exam Report (06/29/2024) Anatomical Region Laterality Modality Ultrasound Provider [facility] IMG US PROCEDURES Final Result * (ABNORMAL) Comprehensive metabolic panel (05/17/2024 4:13 PM EST) Sodium 139 133 - 145 mmol/L LAB CHEMISTRY METHOD 05/17/2024 7:12 PM [facility] Potassium 4.2 3.5 - 5.5 mmol/L LAB CHEMISTRY METHOD 05/17/2024 7:12 PM [facility] Chloride 104 96 - 110 mmol/L LAB CHEMISTRY METHOD 05/17/2024 7:12 PM [facility] CO2 30 21 - 32 mmol/L LAB CHEMISTRY METHOD 05/17/2024 7:12 PM [facility] Anion Gap 5 3 - 11 LAB CHEMISTRY METHOD 05/17/2024 7:12 PM [facility] Glucose 139(H) 70 - 100 mg/dL LAB CHEMISTRY METHOD 05/17/2024 7:12 PM [facility] BUN 13 5 - 25 mg/dL LAB CHEMISTRY METHOD 05/17/2024 7:12 PM [facility] Creatinine 0.72 0.50 - 1.10 mg/dL LAB CHEMISTRY METHOD 05/17/2024 7:12 PM [facility] eGFR 107 >=60 mL/min/1. 73m2 LAB CHEMISTRY METHOD 05/17/2024 7:12 PM [facility] Comment:Calculation based on the Chronic Kidney Disease Epidemiology Collaboration (CKD-EPI) equation refit without adjustment for race. BUN/Creatinine Ratio 18.1 LAB CHEMISTRY METHOD 05/17/2024 7:12 PM [facility] Calcium 9.4 8.5 - 10.5 mg/dL LAB CHEMISTRY METHOD 05/17/2024 7:12 PM [facility] AST (SGOT) 59(H) 10 - 42 unit/L LAB CHEMISTRY METHOD 05/17/2024 7:12 PM [facility] ALT (SGPT) 76(H) 10 - 60 unit/L LAB CHEMISTRY METHOD 05/17/2024 7:12 PM [facility] Alkaline Phosphatase 112 42 - 121 unit/L LAB CHEMISTRY METHOD 05/17/2024 7:12 PM [facility] Total Protein 7.3 6.0 - 8.0 g/dL LAB CHEMISTRY METHOD 05/17/2024 7:12 PM EST [facility] Albumin 3.9 3.2 - 5.0 g/dL LAB CHEMISTRY METHOD 05/17/2024 7:12 PM EST [facility] Total Bilirubin 0.3 0.0 - 1.4 mg/dL LAB CHEMISTRY METHOD 05/17/2024 7:12 PM EST [facility] Blood Venous blood specimen / Unknown Venipuncture / Unknown 05/17/2024 4:13 PM EST 05/17/2024 4:13 PM EST Ophelia Davila NP LAB BLOOD ORDERABLES Final R esult [facility] [address] [place] [address], * Pap smear (08/24/2018) 08/24/2018 Narrative HISTORICAL TESTING LAB RESULTING AGENCY - 08/30/2018 4:50 PM EDT [id number] THINPREP PAP: UNSATISFACTORY SPECIMEN FOR MORPHOLOGIC EVALUATION DUE TO INSUFFICIENT SQUAMOUS CELLULARITY. ACELLULAR SPECIMEN. NOTE: DUE TO THE LIMITED SQUAMOUS CELLULARITY, THE NEGATIVE HPV MAY REPRESENT A FALSE NEGATIVE RESULT. YOSELIN MADDOX(ASCP) (CASE SCREENED 08 29 2018) DIOGENES WRAY M.D. , PATHOLOGIST (CASE ELECTRONICALLY SIGNED 08 29 2018) RESULT OF APTIMA HIGH RISK HPV ASSAY: HIGH RISK HPV: NEGATIVE (SEROTYPES 16,18,31,33,35,39,45,51,52,56,58,59,66,68) COMPLETED ON 2018-08-29 ADEQUACY: UNSATISFACTORY . SOURCE: THINPREP PAP HPV ANY DX: REFLEX 16 AND 18, CERVICAL, IMAGED CLINICAL INFORMATION: HPV ANY DIAGNOSIS. PAP HX NEG [Z12.4, Z01.419] CB QNS Lorenza Schulte CNM LAB CYTOLOGY ORDERA BLES Final Result HISTORICAL TESTING LAB RESULTING AGENCY from Last 3 Months or Most Recently Relevant to Health Maintenance Insurance [facility] [address] [place] [address] Care Teams Wire Drawing Machine Tender Relationship Specialty Start Date End Date Chico Aleman MD needs address update PCP - General Internal Medicine 01/20/25
--- OUTSIDE RECORDS SUMMARY | 2025-01-22 18:11 | XMS_ITS | Encounter Summary ---
Author Organization [facility] Address [address] [place] [address] Care Team Providers Care Dairy Cattle Farmer Name Role Phone Chico Aleman MD Primary Care Provider Un available Reason for Visit * Reason Onset Date Comments Med Refill 01/21/2025 Wegovy w/titrati on Encounter Details Date Type Department Care Team ([facility] st Contact Info) Description 01/21/2025 Telephone Bariatric Surgery - [address] [place] [address] Bill Azul MD [address] [place] [phone] Social History Tobacco Use Types Packs/Day Years Used Date Smoking Tobacco: Former Cigarettes 0.1 26 0 04/03/1992 - 03/22/2018 Smokeless Tobacco: Never Alcohol Use Standard Drinks/Week Comments Yes 0 [...] Record ed Within the last 3 months, augie beltran many times did you visit the emergency [...] care for your loved ones. For example, children's court magistrate or elderly care for an older adult? [...] AM EST Sexual Orientation Not on file documented as of this encounter Progress Notes * Genie Mcclure - 01/21/2025 3:34 PM EDT Patient did well on Wegovy 0.5 mgs and would like a refill with titration. If appropriate, please send script for Wegovy 1 mgs to their pharmacy. The patient does have a follow up in 01/28/2025 documented in this encounter Plan of Treatment Upcoming Encounters Date Type Department Care Team (Late st Contact Info) Description 01/28/2025 3:30 PM EDT Nutrition Bariatric Surgery - [place] [address] [address] Margie Barahona, RD [address] [address] 04/15/2025 8:00 AM EST Office Visit Bariatric Surgery - [address] [address] Bill Azul MD [address] [place] [phone] documented as of this encounter Goals Goal Patient Goal Type Associated Problems Recent Progress Patient-Stated? Author Pt LTGs General No Ambrose Ann, PT Note: Pt will transfer kneeling into standing while pushing off RLE into standing without right knee pain - met Pt will report no right knee numbness - not met Pt will be independent with HEP - met documented as of this encounter Visit Diagnoses Not on filedocumented in this encounter Additional Health Concerns Assessment Noted Time PHQ-9 Depression Total Score: 4 06/27/19 8:41 PM EDT documented as of this encounter Care Teams Dairy Cattle Farmer Relationship Specialty Start Date End Date Chico Aleman MD needs address update PCP - General Internal Medicine 01/20/25 documented as of this encounter
--- OUTSIDE RECORDS SUMMARY | 2025-01-22 18:11 | XMS_ITS | Encounter Summary ---
Author Organization [facility] Address [address] [place] [address] Care Team Providers Care Bartender Manager Name Role Phone Chico Aleman MD Primary Care Provider Un available Reason for Visit * Reason Onset Date Comments Medication Problem 05/24/2024 Encounter Details Date Type Department Care Team (Late st Contact Info) Description 05/24/2024 Telephone Internal Medicine - [place] [address] [facility] [place] [id number] Chico Aleman MD needs address update Social History Tobacco Use Types Packs/Day Years Used Date Smoking Tobacco: Former Cigarettes 0.1 26 0 04/03/1992 - 03/22/2018 Smokeless Tobacco: Never Alcohol Use Standard Drinks/Week Comments Yes 0 (1 standard drink = 0.6 oz pur e alcohol) Comments No Sex and Gender Information Value Date Recorded Sex Assigned at Female 05/26/2024 7:19 AM EST Legal Sex Female 5:00 AM EST Gender Identity Female 05/26/2024 7:19 AM EST Sexual Orientation Not on file documented as of this encounter Progress Notes * Megha Pepper MA - 05/24/2024 11:45 AM EST Pt notified of medication increase. She was told to have A1C done but no orders are placed. Please order A1C labs * Torri Velázquez - 05/24/2024 11:36 AM EST Medication Problem: What is the name of the medication patient is having a problem with?: levothyroxine What is the problem?: asking if Ophelia Davila has increased her dose Who is calling about the problem? : The patient Is this a NEW medication?: no How long has the patient been taking this medication? N/a Who prescribed this medication for the patient? Ophelia Davila Who is patients PCP?: Chico Aleman MD Payor: [facility] / Plan: [facility] / Product Type: *No Product type* / documented in this encounter Plan of Treatment Upcoming Encounters Date Type Department Care Team (Late st Contact Info) Description 01/28/2025 3:30 PM EDT Nutrition Bariatric Surgery - [address] [address] Margie Barahona, RD [address] [address] 04/15/2025 8:00 AM EST Office Visit Bariatric Surgery [address] [address] Bill Azul MD [address] [place] [phone] documented as of this encounter Visit Diagnoses Not on filedocumented in this encounter Care Teams Bartender Manager Relationship Specialty Start Date End Date Chico Aleman MD needs address update PCP - General Internal Medicine 01/20/25 documented as of this encounter
== END 2025-01-22 14:30 | disposition home or self-care (01) ==
PROVIDERS: PCP Internal Medicine; Visit Provider Family Medicine
DX: J06.9 Acute upper respiratory infection, unspecified (principal)
CPT/HCPCS: 99213